=== PATIENT | male | born 1950 | race Caucasian/White ===

== ENCOUNTER 2018-11-20 16:01 | Inpatient (IN) ==
[2018-11-20] MEDS ORDERED: Clindamycin 600 MG/50 ML 600 MG/50 ML IV.SOLN IVPB ONE (19:42)
[2018-11-20 19:48] LABS: Basophils % 0.2 %; Eosinophils % 0.1 %; Hematocrit 41.4 % (37.5-50.1); Hemoglobin 14.3 g/dL (12.9-16.9); Immature Granulocytes % 0.7 % (0-4); Lymphocytes # 0.3 K/mcL (0.6-4.6); Mean Corpuscular HGB Conc 34.5 g/dL (31.6-35.5); Mean Corpuscular Hemoglobin 31.4 pg (28.0-33.3); Mean Corpuscular Volume 90.8 fL (83.0-100.0); Mean Platelet Volume 9.4 fL (9.4-12.4); Monocytes # 0.7 K/mcL (0.0-1.3); Monocytes % 4.2 %; Neutrophils # 15.6 K/mcL (1.6-8.9); Platelet Count 192 K/mcL (140-400); Red Blood Count 4.56 M/mcL (4.19-5.50); Red Cell Distribution Width 13.2 % (11.5-14.5); Segmented Neutrophils % 92.8 %; White Blood Count 16.8 K/mcL (4.3-11.1)
[2018-11-20 19:53] LABS: Bilirubin,Urine Small (Negative); Blood,Urine Negative (Negative); Clarity,Urine Clear (Clear); Color,Urine Yellow (Yellow); Glucose,Urine (UA) Normal (Normal); Ketones,Urine Trace mg/dL (Negative); Leukocyte Esterase,Urine Negative (Negative); Nitrite,Urine Negative (Negative); PH,Urine 6.5 pH Units (5.0-8.0); Protein,Urine 30 mg/dL (Neg-Trace); Urobilinogen,Urine Normal (Normal)
[2018-11-20 19:56] LABS: Bacteria,Urine None Seen per hpf (None-Few); Hyaline Casts,Urine None Seen per lpf (None-Few); Squamous Epithelial Cell,Urine Few per lpf (None-Few); WBC,Urine 0-3 per hpf (0-3)
[2018-11-20 19:56] LABS: INR 1.1; Prothrombin Time 11.9 Seconds (9.4-12.1)
[2018-11-20 19:59] LABS: Activated Partial Thrombo Time 29.3 Seconds (26.0-36.0)
[2018-11-20 20:22] LABS: Alanine Aminotransferase 19 Units/L (7-52); Albumin 3.8 g/dL (3.5-5.7); Albumin/Globulin Ratio 1.5 (1.1-2.2); Alkaline Phosphatase 91 Units/L (34-104); Aspartate Amino Transferase 26 Units/L (13-39); BUN/Creatinine Ratio 15 (6-26); Bilirubin,Direct 0.2 mg/dL (0.0-0.2); Bilirubin,Indirect 0.7 mg/dL (0.0-1.2); Bilirubin,Total 0.9 mg/dL (0.3-1.0); Blood Urea Nitrogen 21 mg/dL (8-23); Calcium 8.8 mg/dL (8.6-10.3); Carbon Dioxide 24 mEq/L (23-29); Chloride 105 mEq/L (98-107); Globulin 2.6 g/dL (2.4-3.5); Glucose 89 mg/dL (70-105); Magnesium 1.6 mg/dL (1.6-2.6); Osmolality,Calculated 288 (280-300); Phosphorous < 1.0 mg/dL (2.7-4.5); Potassium 3.7 mEq/L (3.5-5.1); Sodium 138 mEq/L (136-145); Total Protein 6.4 g/dL (6.4-8.9); Troponin I < 0.03 ng/mL (< 0.04); eGFR For African Americans > 60 (> 60); eGFR For Non-African Americans 51 (> 60)
--- NOTE | 2018-11-20 21:13 | Emergency Department Note ---
Disposition Clinical Impression: Cellulitis of right lower extremity Disposition: Admitted As Inpatient Condition: Good Referrals: Jean Buitrago MD [Primary Care Provider] - Forms: ED Satisfaction Letter Time of Disposition: 22:11 General Adult HPI - General Chief complaint: ED Extremity Problem,Nontraumatic Stated complaint: leg pain bilat Time Seen by Provider: 11/20/18 18:54 Source: patient Limitations: no limitations - History of Present Illness HPI Narrative: Patient is a 68-year-old gentleman who presents to the emergency department with chief complaint of lower extremity pain and swelling. The patient states that the pain started today and noticed that he had a large red area developed on his right lower extremity. Patient states the area is painful and it is raised and erythematous. Patient reports that he has not had trauma to the area. Patient denies history of diabetes denies any trauma to the affected area states that he does wear compression stockings on his lower extremities for peripheral edema. The patient reports that he has a low-grade fever today as well Pain Scale: 8 - Related Data Home Medications Medication Instructions Recorded Confirmed Furosemide [Lasix] 40 mg PO DAILY PRN #0 09/05/15 07/05/18 Levothyroxine [Synthroid] 112 mcg PO 0630 #0 09/05/15 07/05/18 Cholecalciferol (Vitamin D3) 5,000 unit PO DAILY 04/25/18 07/05/18 [Dialyvite Vitamin D] Diclofenac Sodium [Voltaren] 100 gm TP DAILY 07/05/18 07/05/18 Silver Sulfadiazine Cream 1 appl TP ONCE 07/05/18 07/05/18 [Silvadene] Terbinafine HCl [Lamisil] 250 mg PO DAILY 07/05/18 07/05/18 Allergies Allergy/AdvReac Type Severity Reaction Status Date / Time No Known Allergies Allergy Verified 11/20/18 16:10 All systems ED: reviewed and negative except as stated. Past Medical History - Past Medical History Attestation: Yes The following information was validated with the patient. Medical history: Reports: arthritis, renal disease, thyroid disease Surgical history: Reports: appendectomy, orthopedic, other, tonsillectomy Psychiatric history: Reports: no psych history - Social History Smoking Status: Never smoker Smokeless Tobacco Status: No Alcohol use: Reports: none Drug use: Reports: none Physical Exam General: Conversant and pleasant interactive and nontoxic. Head: Normocephalic/atraumatic Eyes:PERRLA, EOMI, no conjunctivitis Nares: Without d/c. Ears: No erythema or d/c noted. Oralpharnyx: P&MMM noted, Neck: Supple, no JVD or [employer] noted. Cardovascular: regular rate and rhythm without murmur, brisk capillary refill, no peripheral edema. Lungs: Clear to ascultation bilaterally, non-labored Abd: Soft nontender, Non Distended, no guarding, no rebound. : Defered Extremities: moves all extremities equally Neuro: AOx3, no obvious gross neuro deficit Psych: Normal Affect Derm: No rash noted - General Limitations: no limitations General appearance: alert Course Course Narrative: The patient's venous duplex is no evidence of DVT and lower extremity with the patient's white blood cell count being elevated and the area of cellulitis. Patient most likely benefit from IV antibiotics at this time the patient is currently not showing signs of severe sepsis he does have a mildly elevated lactic acid at 2.0 and white count of 16,000. Vital Signs Temperature 100.0 F H 11/20/18 16:10 Pulse Rate 101 11/20/18 16:10 Respiratory Rate 20 11/20/18 16:10 Blood Pressure 130/69 11/20/18 16:10 O2 Sat by Pulse Oximetry 96 11/20/18 16:10 Temperature 100.0 F H 11/20/18 18:27 Pulse Rate 92 11/20/18 21:00 Respiratory Rate 14 11/20/18 21:00 Blood Pressure 127/109 11/20/18 21:00 O2 Sat by Pulse Oximetry 98 11/20/18 21:01 Oxygen Delivery Oxygen Delivery Room Air Medical Decision Making - Lab Data Result diagrams: 11/20/18 19:32 11/20/18 19:32 Lab Results 11/20/18 11/20/18 11/20/18 Range/Units 19:32 19:32 19:32 WBC 16.8 H (4.3-11.1) K/mcL RBC 4.56 (4.19-5.50) M/mcL Hgb 14.3 (12.9-16.9) g/dL Hct 41.4 (37.5-50.1) % MCV 90.8 (83.0-100.0) fL MCH 31.4 (28.0-33.3) pg MCHC 34.5 (31.6-35.5) g/dL RDW 13.2 (11.5-14.5) % Plt Count 192 (140-400) K/mcL MPV 9.4 (9.4-12.4) fL Immature Gran % 0.7 (0-4) % Seg Neutrophils % 92.8 % Lymphocytes % 2.0 % Monocytes % 4.2 % Eosinophils % 0.1 % Basophils % 0.2 % Neutrophils # 15.6 H (1.6-8.9) K/mcL Lymphocytes # 0.3 L (0.6-4.6) K/mcL Monocytes # 0.7 (0.0-1.3) K/mcL Eosinophils # 0.0 (0.0-0.6) K/mcL Basophils # 0.0 (0.0-0.2) K/mcL PT 11.9 (9.4-12.1) Seconds INR 1.1 APTT 29.3 (26.0-36.0) Seconds Sodium 138 (136-145) mEq/L Potassium 3.7 (3.5-5.1) mEq/L Chloride 105 (98-107) mEq/L Carbon Dioxide 24 (23-29) mEq/L BUN 21 (8-23) mg/dL Creatinine 1.39 H (0.70-1.30) mg/dL Est GFR ( Amer) > 60 (> 60) Est GFR (Non-Af Amer) 51 L (> 60) BUN/Creatinine Ratio 15 (6-26) Glucose 89 (70-105) mg/dL Calculated Osmolality 288 (280-300) Lactic Acid (0.5-2.2) mmol/L Calcium 8.8 (8.6-10.3) mg/dL Phosphorus < 1.0 L* (2.7-4.5) mg/dL Magnesium 1.6 (1.6-2.6) mg/dL Total Bilirubin 0.9 (0.3-1.0) mg/dL Direct Bilirubin 0.2 (0.0-0.2) mg/dL Indirect Bilirubin 0.7 (0.0-1.2) mg/dL AST 26 (13-39) Units/L ALT 19 (7-52) Units/L Alkaline Phosphatase 91 (34-104) Units/L Troponin I < 0.03 (< 0.04) ng/mL B-Natriuretic Peptide (Less than 100) pg/mL Serum Total Protein 6.4 (6.4-8.9) g/dL Albumin 3.8 (3.5-5.7) g/dL Globulin 2.6 (2.4-3.5) g/dL Albumin/Globulin Ratio 1.5 (1.1-2.2) Urine Color (Yellow) Urine Clarity (Clear) Urine pH (5.0-8.0) pH Units Ur Specific [place] (1.010-1.025) Urine Protein (Neg-Trace) mg/dL Urine Glucose (UA) (Normal) mg/dL Urine Ketones (Negative) mg/dL Urine Blood (Negative) Urine Nitrite (Negative) Urine Bilirubin (Negative) Urine Urobilinogen (Normal) mg/dL Ur Leukocyte Esterase (Negative) Urine Microscopic RBC (0-3) per hpf Urine Microscopic WBC (0-3) per hpf Ur Squamous Epith Cells (None-Few) per lpf Urine Bacteria (None-Few) per hpf Hyaline Casts (None-Few) per lpf Ur Culture Indicated? (NO) 11/20/18 11/20/18 11/20/18 Range/Units 19:32 19:32 19:40 WBC (4.3-11.1) K/mcL RBC (4.19-5.50) M/mcL Hgb (12.9-16.9) g/dL Hct (37.5-50.1) % MCV (83.0-100.0) fL MCH (28.0-33.3) pg MCHC (31.6-35.5) g/dL RDW (11.5-14.5) % Plt Count (140-400) K/mcL MPV (9.4-12.4) fL Immature Gran % (0-4) % Seg Neutrophils % % Lymphocytes % % Monocytes % % Eosinophils % % Basophils % % Neutrophils # (1.6-8.9) K/mcL Lymphocytes # (0.6-4.6) K/mcL Monocytes # (0.0-1.3) K/mcL Eosinophils # (0.0-0.6) K/mcL Basophils # (0.0-0.2) K/mcL PT (9.4-12.1) Seconds INR APTT (26.0-36.0) Seconds Sodium (136-145) mEq/L Potassium (3.5-5.1) mEq/L Chloride (98-107) mEq/L Carbon Dioxide (23-29) mEq/L BUN (8-23) mg/dL Creatinine (0.70-1.30) mg/dL Est GFR ( Amer) (> 60) Est GFR (Non-Af Amer) (> 60) BUN/Creatinine Ratio (6-26) Glucose (70-105) mg/dL Calculated Osmolality (280-300) Lactic Acid 2.0 (0.5-2.2) mmol/L Calcium (8.6-10.3) mg/dL Phosphorus (2.7-4.5) mg/dL Magnesium (1.6-2.6) mg/dL Total Bilirubin (0.3-1.0) mg/dL Direct Bilirubin (0.0-0.2) mg/dL Indirect Bilirubin (0.0-1.2) mg/dL AST (13-39) Units/L ALT (7-52) Units/L Alkaline Phosphatase (34-104) Units/L Troponin I (< 0.04) ng/mL B-Natriuretic Peptide 121 H (Less than 100) pg/mL Serum Total Protein (6.4-8.9) g/dL Albumin (3.5-5.7) g/dL Globulin (2.4-3.5) g/dL Albumin/Globulin Ratio (1.1-2.2) Urine Color Yellow (Yellow) Urine Clarity Clear (Clear) Urine pH 6.5 (5.0-8.0) pH Units Ur Specific [place] 1.020 (1.010-1.025) Urine Protein 30 H (Neg-Trace) mg/dL Urine Glucose (UA) Normal (Normal) mg/dL Urine Ketones Trace H (Negative) mg/dL Urine Blood Negative (Negative) Urine Nitrite Negative (Negative) Urine Bilirubin Small H (Negative) Urine Urobilinogen Normal (Normal) mg/dL Ur Leukocyte Esterase Negative (Negative) Urine Microscopic RBC 3-5 H (0-3) per hpf Urine Microscopic WBC 0-3 (0-3) per hpf Ur Squamous Epith Cells Few (None-Few) per lpf Urine Bacteria None Seen (None-Few) per hpf Hyaline Casts None Seen (None-Few) per lpf Ur Culture Indicated? NO (NO) 11/20/18 Range/Units 20:44 WBC (4.3-11.1) K/mcL RBC (4.19-5.50) M/mcL Hgb (12.9-16.9) g/dL Hct (37.5-50.1) % MCV (83.0-100.0) fL MCH (28.0-33.3) pg MCHC (31.6-35.5) g/dL RDW (11.5-14.5) % Plt Count (140-400) K/mcL MPV (9.4-12.4) fL Immature Gran % (0-4) % Seg Neutrophils % % Lymphocytes % % Monocytes % % Eosinophils % % Basophils % % Neutrophils # (1.6-8.9) K/mcL Lymphocytes # (0.6-4.6) K/mcL Monocytes # (0.0-1.3) K/mcL Eosinophils # (0.0-0.6) K/mcL Basophils # (0.0-0.2) K/mcL PT (9.4-12.1) Seconds INR APTT (26.0-36.0) Seconds Sodium (136-145) mEq/L Potassium (3.5-5.1) mEq/L Chloride (98-107) mEq/L Carbon Dioxide (23-29) mEq/L BUN (8-23) mg/dL Creatinine (0.70-1.30) mg/dL Est GFR ( Amer) (> 60) Est GFR (Non-Af Amer) (> 60) BUN/Creatinine Ratio (6-26) Glucose (70-105) mg/dL Calculated Osmolality (280-300) Lactic Acid (0.5-2.2) mmol/L Calcium (8.6-10.3) mg/dL Phosphorus < 1.0 L* (2.7-4.5) mg/dL Magnesium (1.6-2.6) mg/dL Total Bilirubin (0.3-1.0) mg/dL Direct Bilirubin (0.0-0.2) mg/dL Indirect Bilirubin (0.0-1.2) mg/dL AST (13-39) Units/L ALT (7-52) Units/L Alkaline Phosphatase (34-104) Units/L Troponin I (< 0.04) ng/mL B-Natriuretic Peptide (Less than 100) pg/mL Serum Total Protein (6.4-8.9) g/dL Albumin (3.5-5.7) g/dL Globulin (2.4-3.5) g/dL Albumin/Globulin Ratio (1.1-2.2) Urine Color (Yellow) Urine Clarity (Clear) Urine pH (5.0-8.0) pH Units Ur Specific [place] (1.010-1.025) Urine Protein (Neg-Trace) mg/dL Urine Glucose (UA) (Normal) mg/dL Urine Ketones (Negative) mg/dL Urine Blood (Negative) Urine Nitrite (Negative) Urine Bilirubin (Negative) Urine Urobilinogen (Normal) mg/dL Ur Leukocyte Esterase (Negative) Urine Microscopic RBC (0-3) per hpf Urine Microscopic WBC (0-3) per hpf Ur Squamous Epith Cells (None-Few) per lpf Urine Bacteria (None-Few) per hpf Hyaline Casts (None-Few) per lpf Ur Culture Indicated? (NO)
[2018-11-20] MEDS ORDERED: Naloxone 0.4 MG/ML INJ IVP PRN (23:17)
--- NOTE | 2018-11-20 23:24 | Internal Med History&Physical ---
Date of Encounter: 11/20/18 Time of Encounter: 23:21 Internal Medicine - H&P: HPI Chief complaint: Right leg swelling Admitted From: Emergency Dept Plans for Post Hospital Care: Home History of present illness: Mr. Kulkarni is a 68 year old male with history of hypothyroidism who presents with right leg swelling. He states his symptoms began today. He states all of sudden he developed pain and swelling with erythema in the right lower extremity. He states this feels similar to his previous episodes of cellulitis. He denies any trauma, injury, skin break to the area. He reports subjective fevers and chills. Denies any drainage. He states walking on it makes the pain worse. He states nothing makes the pain better. Discussed with patient who wishes to be full code. Past Med Surg Social Fam HX - Past Medical History Medical history: arthritis, renal disease, thyroid disease Additional medical history: bilateral calluses on feet,bilateral edema of lower extremity,hypothyroid,obesity,chronic kidney disease stage III,nocturia,erectile dysfuntion Psychiatric history: no psych history - Past Surgical History Surgical History: appendectomy, orthopedic, other, tonsillectomy Additional surgical history: left knee arthroscopy,adenoidectomy,right knee scope,right foot surgery - Social History Smoking Status: Never smoker Smokeless Tobacco Status: No Alcohol use: none Drug use: none - Family History Mother Adopted: No Living Status: Hx Family Cardiac Disorders: Yes Hx Family Respiratory Disorders: Yes Hx Family Cancer: Yes Hx Family GI Disorders: No Hx Family Endocrine Disorder: No Hx Family Neuromuscular Disorders: No Hx Family Neurologic Disorders: No Hx Family HEENT Disorders: No Hx Family Autoimmune Disorders: No Father Adopted: No Living Status: Hx Family Cardiac Disorders: Yes Hx Family Respiratory Disorders: Yes Hx Family Cancer: Yes Hx Family GI Disorders: No Hx Family Endocrine Disorder: No Hx Family Neuromuscular Disorders: No Hx Family Neurologic Disorders: No Hx Family HEENT Disorders: No Hx Family Autoimmune Disorders: No Internal Medicine - H&P: Meds Furosemide [Lasix] 40 mg PO DAILY PRN #0 09/05/15 [History] Levothyroxine [Synthroid] 112 mcg PO 0630 #0 09/05/15 [History] Silver Sulfadiazine Cream [Silvadene] 1 appl TP ONCE 07/05/18 [History] "Prostate Pill" 11/20/18 [History] Allergy/AdvReac Type Severity Reaction Status Date / Time No Known Allergies Allergy Verified 11/20/18 16:10 All Systems PM: A 10-system review of systems was performed and is negative for pertinent findings except as documented above in the HPI. Review of systems: 10 point review of systems was obtained and negative other than stated below: - Constitutional Constitutional: chills, fever(s) - Cardiovascular Cardiovascular ROS IM: no chest pain - Respiratory Respiratory: no dyspnea - Integumentary Integumentary IM: erythema, new lesions - Constitutional Vitals: Temp Pulse Resp BP Pulse Ox 100.0 F H 87 20 165/118 99 11/20/18 18:27 11/20/18 22:35 11/20/18 22:35 11/20/18 22:35 11/20/18 22:35 General appearance: Present: A&O X 3, pleasant, no acute distress Exam: . - Head Head exam: Present: atraumatic, normal inspection, normocephalic - Eye Eye exam: Present: EOMI, PERRL - ENT ENT exam: Present: mucous membranes moist, normal oropharynx - Neck Neck exam general surgery: Present: full ROM. Absent: tenderness - Respiratory Respiratory exam: Present: CTAB. Absent: rales, rhonchi, wheezes - Cardiovascular Cardiovascular exam: Present: RRR. Absent: gallop, rubs, systolic murmur - GI/Abdominal GI/Abdominal exam: Present: normal bowel sounds, soft. Absent: distended, tenderness - Extremities Exam Extremities exam: Present: pedal edema (Trace bilateral), tenderness, warm - Neurological Exam Neurological exam: Present: alert, CN II-XII intact, oriented X3, no focal deficits - Psychiatric Psychiatric exam: Present: normal affect, normal mood - Skin Skin exam: Present: dry, intact, warm Additional comments: Patient has an area erythema on the right lower extremity between the knee in the ankle. Area is indurated with no obvious fluctuance. No break in the skin is noted. No areas of drainage noted. This area is tender to palpation. Internal Med - H&P Results - Labs CBC & Chem 7: 11/20/18 19:32 11/20/18 19:32 Labs: Short CBC 11/20/18 Range/Units 19:32 WBC 16.8 H (4.3-11.1) K/mcL Hgb 14.3 (12.9-16.9) g/dL Hct 41.4 (37.5-50.1) % Plt Count 192 (140-400) K/mcL Neutrophils # 15.6 H (1.6-8.9) K/mcL BMP 11/20/18 19:32 Sodium 138 Potassium 3.7 Chloride 105 Carbon Dioxide 24 BUN 21 Creatinine 1.39 H Glucose 89 Calcium 8.8 Cardiac Enzymes 11/20/18 Range/Units 19:32 Troponin I < 0.03 (< 0.04) ng/mL Liver Function 11/20/18 Range/Units 19:32 Total Bilirubin 0.9 (0.3-1.0) mg/dL Direct Bilirubin 0.2 (0.0-0.2) mg/dL AST 26 (13-39) Units/L ALT 19 (7-52) Units/L Alkaline Phosphatase 91 (34-104) Units/L Albumin 3.8 (3.5-5.7) g/dL Urine 11/20/18 Range/Units 19:40 Urine Color Yellow (Yellow) Urine Clarity Clear (Clear) Urine pH 6.5 (5.0-8.0) pH Units Ur Specific [place] 1.020 (1.010-1.025) Urine Protein 30 H (Neg-Trace) mg/dL Urine Glucose (UA) Normal (Normal) mg/dL - Impressions ITS Impressions Chest X-Ray 11/20/18 19:12 IMPRESSION: No acute abnormality detected. D/ / Mert Wesley MD / Mert Wesley MD Interpreting Provider: Mert Wesley MD - Assessment and Plan (1) Sepsis Current Visit: Yes Status: Acute Assessment and plan: Patient presented with leukocytosis and tachycardia with presumed source felt to be cellulitis. Blood cultures have been drawn. Initial lactic acid was 2.0, recheck down to 1.8. Fluids were not given due to patient's history of peripheral edema. Antibiotics initially initiated with clindamycin, has been switched to vancomycin. Qualifiers: Sepsis type: sepsis due to unspecified organism Qualified Code(s): A41.9 - Sepsis, unspecified organism (2) Cellulitis Current Visit: Yes Status: Acute Assessment and plan: Patient has erythema and induration of the right lower extremity. We will asked nursing to outline it. Initially with clindamycin. Upon review of old microbiologic results patient is admitted MRSA in the past been resistant to clindamycin. Therefore we will start vancomycin. Qualifiers: Site of cellulitis: extremity Site of cellulitis of extremity: lower extremity Laterality: right Qualified Code(s): L03.115 - Cellulitis of right lower limb (3) Chronic kidney disease, stage III (moderate) Current Visit: Yes Status: Acute Assessment and plan: Creatinine 1.39 on presentation, GFR 51, baseline GFR appears around 55. Closely monitor kidney function as the patient is receiving vancomycin. (4) Hypothyroidism Current Visit: No Status: Chronic Assessment and plan: Continue levothyroxine. Qualifiers: Hypothyroidism type: unspecified Qualified Code(s): E03.9 - Hypothyroidism, unspecified (5) DVT prophylaxis Current Visit: Yes Status: Acute Assessment and plan: Heparin 5000 units subcutaneous twice a day - Time Spent With Patient Total time spent is greater than 50% in coordination of care (as documented) at patient's floor/unit and/or counseling patient:
[2018-11-20] MEDS ORDERED: Vancomycin (wt based) 1,000 MG VIAL IVPB SCH (23:45)
[2018-11-20] MEDS: Melatonin 3 MG TABLET PO PRN (23:55)
[2018-11-21] MEDS: *HR* Heparin 5,000 UNIT/ML VIAL SQ SCH ×2 (05:28→17:39)
[2018-11-21 06:23] LABS: Basophils # 0.1 K/mcL (0.0-0.2); Basophils % 0.2 %; Hematocrit 40.1 % (37.5-50.1); Hemoglobin 13.5 g/dL (12.9-16.9); Immature Granulocytes % 1.4 % (0-4); Lymphocytes # 0.6 K/mcL (0.6-4.6); Lymphocytes % 2.4 %; Mean Corpuscular HGB Conc 33.7 g/dL (31.6-35.5); Mean Corpuscular Hemoglobin 31.2 pg (28.0-33.3); Mean Corpuscular Volume 92.6 fL (83.0-100.0); Mean Platelet Volume 9.5 fL (9.4-12.4); Monocytes # 0.6 K/mcL (0.0-1.3); Monocytes % 2.3 %; Neutrophils # 22.6 K/mcL (1.6-8.9); Platelet Count 185 K/mcL (140-400); Red Blood Count 4.33 M/mcL (4.19-5.50); Red Cell Distribution Width 13.5 % (11.5-14.5); Segmented Neutrophils % 93.7 %; White Blood Count 24.1 K/mcL (4.3-11.1)
[2018-11-21 06:47] LABS: Calcium 8.5 mg/dL (8.6-10.3); Magnesium 1.7 mg/dL (1.6-2.6); Phosphorous 2.3 mg/dL (2.7-4.5); Potassium 4.3 mEq/L (3.5-5.1)
[2018-11-21 07:17] LABS: Platelet Estimate Normal (Normal)
[2018-11-21 08:02] LABS: Acinetobacter baumannii by PCR Not Detected (Not Detect); Enterobacter cloacae Cmplx PCR Not Detected (Not Detect); Enterobacteriaceae by PCR Not Detected (Not Detect); Enterococcus by PCR Not Detected (Not Detect); Escherichia coli by PCR Not Detected (Not Detect); Klebsiella oxytoca by PCR Not Detected (Not Detect); Klebsiella pneumoniae by PCR Not Detected (Not Detect); Proteus by PCR Not Detected (Not Detect); Pseudomonas aeruginosa by PCR Not Detected (Not Detect); Serratia marcescens by PCR Not Detected (Not Detect); Staphylococcus aureus by PCR Not Detected (Not Detect); Staphylococcus by PCR Not Detected (Not Detect); Streptococcus agalactiae(B)PCR Not Detected (Not Detect); Streptococcus pneumoniae PCR Not Detected (Not Detect); Streptococcus pyogenes (A) PCR Not Detected (Not Detect)
[2018-11-21 08:03] LABS: Candida albicans by PCR Not Detected (Not Detect); Candida glabrata by PCR Not Detected (Not Detect); Candida krusei by PCR Not Detected (Not Detect); Candida parapsilosis by PCR Not Detected (Not Detect); Candida tropicalis by PCR Not Detected (Not Detect); Streptococcus by PCR DETECTED (Not Detect)
[2018-11-21] MEDS ORDERED: Ringers Solution, Lactated 1,000 ML IVC SCH (08:45)
[2018-11-21] MEDS ORDERED: cefTRIAXone 1,000 MG in Water for inj. (sterile) 20 ML 10 ML IVP SCH (09:00)
[2018-11-21] MEDS: Acetaminophen 325 MG TABLET PO PRN ×2 (10:10→19:58)
--- NOTE | 2018-11-21 12:00 | Internal Med Progress Note ---
Hospitalist Progress Note - Encounter Date of Encounter: 11/21/18 Time of Encounter: 11:56 - Subjective Interval History: I have seen and evaluated the patient at bedside. patient reports pain on the right lower extr. reports subjective fever, and generalized weakness. denies nausea or vomiting. denies shortness of breath. - Exam Vitals: Temp Pulse Resp BP Pulse Ox 98.7 F 68 16 99/60 96 11/21/18 11:17 11/21/18 11:17 11/21/18 11:17 11/21/18 11:17 11/21/18 11:17 Exam: Vitals: Reviewed General: Morbidly obese, alert and oriented x4. In mild distress due to right lower extr pain Cardiovascular: RRR, normal S1 & S2, no rubs, murmurs or gallops. Lungs: CTA b/l, no wheezes or crackles. Abdomen: Obese, soft, non-tender, no rigidity. Extremities: erythema and edema of the right lower extr. Neurological: No focal neurological abnormalities Rest of the physical exam is non contributory - Assessment and Plan (1) Cellulitis Current Visit: Yes Status: Acute Assessment and Plan: erythema, edema and tenderness of the right lower extr. Plan patient on broad spectrum antibiotics with vancomycin for MRSA coverage per pharmacy dosing and Piperacillin/Tazobactam 3.375mg/IV Q8HR for pseudomonas coverage [place] 5-325mg 1tab Q4HR PRN for pain control extremity elevated >[address] of the extremity to r/o collection. ESR. CRP ordered (2) Hypothyroidism Current Visit: No Status: Chronic Assessment and Plan: Patient is a levofloxacin 112 mcg/PO daily (3) Sepsis Current Visit: Yes Status: Acute Assessment and Plan: patient with hypotension, febrile, leukocytosis in the setting of cellulitis. On broad spectrum IV antibiotics IV hydration with LR @100ml/hr (4) Chronic kidney disease, stage III (moderate) Current Visit: Yes Status: Acute Assessment and Plan: slightly worsening kidney function. continue IV fluids and nephro-protective strategies. will re-assess kidney function tomorrow morning (5) Hypophosphatemia Current Visit: Yes Status: Acute (6) Bacteremia Current Visit: Yes Status: Acute Assessment and Plan: patient with a Hx of MRSA. blood culture: gram positive cocci. PCR identified strep species MRSA screen continue vancomycin per pharmacy protocol TTE ordered ID consulted, recommendations appreciated. (7) Morbid obesity with body mass index of 45.0-49.9 in adult Current Visit: No Status: Acute DVT Prophylaxis: On heparin subcutaneous. - Summary of Assessment and Plan Summary of Assessment and Plan: Patient to remain in the hospital due to sepsis, secondary to cellulitis. On IV antibiotics. - Time Spent with Patient Total time spent is greater than 50% in coordination of care (as documented) at patient's floor/unit and/or counseling patient: Greater than 35 minutes (40) Plan of Care Discussed with: patient (and the nurse.) Internal Medicine: Result - Labs CBC & Chem 7: 11/21/18 06:10 11/21/18 06:10 Labs: Short CBC 11/20/18 11/21/18 Range/Units 19:32 06:10 WBC 16.8 H 24.1 H (4.3-11.1) K/mcL Hgb 14.3 13.5 (12.9-16.9) g/dL Hct 41.4 40.1 (37.5-50.1) % Plt Count 192 185 (140-400) K/mcL Neutrophils # 15.6 H 22.6 H (1.6-8.9) K/mcL BMP 11/20/18 11/21/18 19:32 06:10 Sodium 138 134 L Potassium 3.7 4.3 Chloride 105 103 Carbon Dioxide 24 22 L BUN 21 26 H Creatinine 1.39 H 1.56 H Glucose 89 91 Calcium 8.8 8.5 L Cardiac Enzymes 11/20/18 Range/Units 19:32 Troponin I < 0.03 (< 0.04) ng/mL Liver Function 11/20/18 Range/Units 19:32 Total Bilirubin 0.9 (0.3-1.0) mg/dL Direct Bilirubin 0.2 (0.0-0.2) mg/dL AST 26 (13-39) Units/L ALT 19 (7-52) Units/L Alkaline Phosphatase 91 (34-104) Units/L Albumin 3.8 (3.5-5.7) g/dL Urine 11/20/18 Range/Units 19:40 Urine Color Yellow (Yellow) Urine Clarity Clear (Clear) Urine pH 6.5 (5.0-8.0) pH Units Ur Specific [place] 1.020 (1.010-1.025) Urine Protein 30 H (Neg-Trace) mg/dL Urine Glucose (UA) Normal (Normal) mg/dL - ABG Interpretation ABG results: PT/INR, D-dimer PT 11.9 Seconds (9.4-12.1) 11/20/18 19:32 - Impressions Impressions Chest X-Ray 11/20/18 19:12 IMPRESSION: No acute abnormality detected. D/ / Mert Wesley MD / Mert Wesley MD Interpreting Provider: Mert Wesley MD Consult Discharge Plan - Plan Referrals: Jean Buitrago MD [Primary Care Provider] - (1) Cellulitis Qualifiers: Site of cellulitis: extremity Site of cellulitis of extremity: lower extremity Laterality: right Qualified Code(s): L03.115 - Cellulitis of right lower limb (2) Hypothyroidism Qualifiers: Hypothyroidism type: unspecified Qualified Code(s): E03.9 - Hypothyroidism, unspecified (3) Sepsis Qualifiers: Sepsis type: sepsis due to unspecified organism Qualified Code(s): A41.9 - Sepsis, unspecified organism
--- NOTE | 2018-11-21 12:52 | Infectious Disease Consult ---
Infectious Disease-Consult - Encounter Date/Time Date of Encounter: 11/21/18 Time of Encounter: 13:30 - Data of Consult Patient: new to practice Reason for consult: Gram-positive cocci bacteremia Consult date: 11/21/18 Requesting Physician: Gurpreet Patricia, Primary Care Provider: Jean Buitrago MD - HPI HPI: Mr. Kulkarni is a 68-year-old gentleman who was admitted to the hospital on 11/20/18 for right leg swelling and cellulitis for approximately 2 days. Infectious disease was consulted today, 11/21/18, for Streptococcus bacteremia and sepsis. In short, Mr. Kulkarni is a 68-year-old man with history of renal disease who presented to the hospital on 11/20/18 with 2 day history of right lower extremity swelling and erythema as well as severe pain. In association with this he did admit to fever, chills and malaise. The patient does have history of cellulitis of the right lower extremity as well as a long-standing ulcer of the right lower extremity which has been healing. He says the pain started relatively quickly and has been worsening rapidly. There is no drainage to be noted. He says that he is not aware of any openings in the skin or injury to that area. Nothing seems to make this pain any better. Walking and weightbearing does make the pain worse. Upon presentation to the ED, the patient did have chest x-ray which was negative for intrathoracic finding. She had a WBC of 16.8, CRP of 123. He was nearly febrile with a temperature of 100.0, however he was tachycardic at 101 and tachypneic at respiratory rate of 20. Blood cultures were drawn at that time which would eventually result in positive cultures for gram-positive cocci with positivity a PCR for Streptococcus. Overnight the patient continued to have temperatures were elevated including Tmax of 100.2. This morning the patient had labs significant for WBC of 24.1, and elevation of serum creatinine of 1.56. The patient did have a CT of the lower extremity which demonstrated soft tissue edema but no consolidated fluid collection. Infectious disease was consulted for bacteremia and worsening cellulitis. - ROS Review of Systems: Constitutional: Admits to subjective fevers, chills, sweats Head/Neck: Denies DAVID, neck stiffness EENT: Denies vision changes/blurriness, rhinorrhea, congestion, sore throat CVS: Denies chest pain, palpitations, DAMON, orthopnea, edema, PND Pulm: Denies SOB, cough, sputum, hemoptysis, wheezing GI: Denies abdominal pain, nausea, vomiting, diarrhea, constipation, melena, hematemasis : Denies dysuria, increased frequency, urgency, hematuria Heme: Denies ease of bleeding or bruising MSK: Denies joint pain, limited ROM Skin: Admits to rash of the right lower extremity which developed 2 days ago Neuro: Denies DAVID, paresthesias, focal deficits, ataxia - Results CBC & Chem 7: 11/21/18 06:10 11/21/18 06:10 - Exam Vitals: Temp Pulse Resp BP Pulse Ox 98.7 F 68 16 99/60 96 11/21/18 11:17 11/21/18 11:17 11/21/18 11:17 11/21/18 11:17 11/21/18 11:17 Exam: Gen: Vitals noted. No acute distress. Eyes: anicteric sclerae, moist conjunctivae; no lid-lag; Pupils equal and reactive to light HENT: Atraumatic; oropharynx clear with moist mucous membranes and no mucosal ulcerations; normal hard and soft palate Neck: Trachea midline; supple, no thyromegaly or lymphadenopathy Cardiac: RRR, no murmur, +S1/S2 Pulmonary: CTA bilaterally, no wheezes, rales or rhonchi, equal chest expansion Abdomen: soft, nontender, no guarding. No masses or hepatosplenomegaly MSK: ROM intact, no joint swelling noted Extremities: Left lower extremity demonstrates no edema, clubbing, cyanosis. Right lower extremity as below. Skin: Well-demarcated cellulitis noted on the right lower extremity. Begins just below the knee and in just above the severe erythema and hyperemia. There is a healing ulcer noted on the lateral right lower extremity. There are no areas of opening or drainage. There is a blistered appearance between the fourth and fifth metatarsal of the right lower extremity. No decubitus ulcers noted. Neuro: moves all extremities, no focal deficits. Psych: Appropriate mood and behavior. A&Ox3 Furosemide [Lasix] 40 mg PO DAILY PRN #0 09/05/15 [History] Levothyroxine [Synthroid] 112 mcg PO 0630 #0 09/05/15 [History] Silver Sulfadiazine Cream [Silvadene] 1 appl TP ONCE 07/05/18 [History] "Prostate Pill" 11/20/18 [History] Allergy/AdvReac Type Severity Reaction Status Date / Time No Known Allergies Allergy Verified 11/20/18 16:10 - Assessment and Plan (1) Sepsis Current Visit: Yes Status: Acute Severe Sepsis due to Streptococcus bacteremia and cellulitis of the right lower extremity SIRS Criteria: WBC 24.1, HR 101, RR 20. Afebrile, however Tmax 100.2. Source: Cellulitis, Strep bacteremia. Presents with KIM Evidence of cellulitis on admission, severe erythema and hyperemia of the right lower extremity which is well demarcated On admission, WBC 16.8, increased to 24.1 overnight. Worsened KIM overnight. Lactic acid 2.0 CT RLE 11/27/18 shows diffuse subcutaneous edema with dystrophic calcification in the anterior soft tissues, compatible with cellulitis Patient does not be germain criteria for infective endocarditis ESR 14 CRP 123 Cultures 11/20/18 blood culture positive for GPC 1, PCR positive for strep 10/15/17 left foot wound culture MRSA positive, strep agalactiae positive, alcigenes faecalis postivie 09/03/17 left foot wound culture strep agalactiae positive, MSSA positive 10/12/16 right foot wound culture strep G positive Antibiotics Vancomycin day 1 Zosyn day 1 Received Rocephin in the ED Received clindamycin and ED Recommendations -Stop vancomycin and Zosyn -Start Rocephin 2 g IV daily -Repeat CBC in the morning, carefully monitor labs overnight -Repeat blood cultures in the morning -At this time, suspect Streptococcus as main infective agent. If the patient decompensates clinically or labs are worsened in the morning, consider broadening coverage. Clinically, he appears to be improving, and he feels as though he is improving. -Will continue to monitor Qualifiers: Sepsis type: Streptococcus, unspecified Qualified Code(s): A40.9 - Streptococcal sepsis, unspecified; A40 - Streptococcal sepsis SNOMED Code(s): 30495737 (2) Bacteremia Current Visit: Yes Status: Acute Streptococcus bacteremia Cultures from 11/20/18 are positive 1, specific strain or not clear at this point Patient does not meet Germain criteria at this time for endocarditis, has no stigmata of endocarditis on exam Additionally, patient has had orthopedic surgery, however has no hardware We will continue to treat the patient as above SNOMED Code(s): 3666582 (3) Cellulitis of right lower extremity Current Visit: Yes Status: Acute Cellulitis, likely secondary to strep species It is possible that the cellulitis is polymicrobial however uncertain at this time We will transition the patient to Rocephin as above Continue to monitor clinically and with labs Broaden coverage as needed SNOMED Code(s): 835972329 (4) Acute kidney injury superimposed on CKD Current Visit: Yes Status: Acute Acute kidney injury on CKD Stage 3 This is likely secondary to severe sepsis in the setting of gram-positive chet teremia Management per primary team SNOMED Code(s): 06323160 (5) Hypothyroidism Current Visit: No Status: Chronic Qualifiers: Hypothyroidism type: unspecified Qualified Code(s): E03.9 - Hypothyroidism, unspecified SNOMED Code(s): 32663891 Past Med Surg Social Fam HX - Past Medical History Medical history: arthritis, renal disease, thyroid disease Additional medical history: bilateral calluses on feet,bilateral edema of lower extremity,hypothyroid,obesity,chronic kidney disease stage III,nocturia,erectile dysfuntion Psychiatric history: no psych history - Past Surgical History Surgical History: appendectomy, orthopedic, other, tonsillectomy Additional surgical history: left knee arthroscopy,adenoidectomy,right knee scope,right foot surgery - Social History Smoking Status: Never smoker Smokeless Tobacco Status: No Alcohol use: none Drug use: none - Family History Mother Adopted: No Living Status: Hx Family Cardiac Disorders: Yes Hx Family Respiratory Disorders: Yes Hx Family Cancer: Yes Hx Family GI Disorders: No Hx Family Endocrine Disorder: No Hx Family Neuromuscular Disorders: No Hx Family Neurologic Disorders: No Hx Family HEENT Disorders: No Hx Family Autoimmune Disorders: No Father Adopted: No Living Status: Hx Family Cardiac Disorders: Yes Hx Family Respiratory Disorders: Yes Hx Family Cancer: Yes Hx Family GI Disorders: No Hx Family Endocrine Disorder: No Hx Family Neuromuscular Disorders: No Hx Family Neurologic Disorders: No Hx Family HEENT Disorders: No Hx Family Autoimmune Disorders: No Consult Discharge Plan - Plan Referrals: Jean Buitrago MD [Primary Care Provider] - - Attending Attestation I examined this patient and my medical decision-making was reviewed with the Resident Physician. I agree with the documented findings, disposition and treatment plan as described except to the extent set forth below. Patient appears comfortable sitting at bedside. Agree with above history of present illness review of systems physical exam findings. Assessment and plan: Sepsis secondary to bacteremia Bacteremia with streptococcal species. ID pending likely source cellulitis Cellulitis right lower extremity Acute on chronic kidney injury Hypothyroidism Morbidity obesity BMI 50 Recommendations Stop the vancomycin Start Rocephin 2 g IV every 24 hours If patient does worse clinically we might have to add either daptomycin on Zyvox but hopefully we do not need to Monitor labs and for drug toxicity
[2018-11-21] MEDS: cefTRIAXone 2,000 MG in Water for inj. (sterile) 20 ML 20 ML IVP SCH (14:57)
[2018-11-21] MEDS: *HR* HYDROcodone/Acet 5/325 mg TABLET PO PRN (14:59)
[2018-11-21] MEDS: Ringers Solution, Lactated 1,000 ML IVC SCH ×2 (15:09→22:00)
[2018-11-21] MEDS ORDERED: Piperacillin/Tazobactam 3.375 GM in 0.9 % Sodium Chloride Mini Bag 100 ML IVPB SCH (16:00)
[2018-11-21] MEDS ORDERED: Perflutren Lipid Microsphere 1.3 ML in 0.9 % Sodium Chloride 8.7 ML IVP ONE (18:42)
--- NOTE | 2018-11-21 19:47 | Electrocardiograph Report ---
[place] [id number] Test Date: 2018-11-20 Pat Name: Ramón Kulkarni Department: EXAM1 Room: 2A23 Gender: M Mortgage Manager: : [id number] Requested By: Tommy Cavazos Order Number: [id number] Reading MD: Carmen Frye Measurements Intervals [place] Rate: 89 P: 19 KS: 151 QRS: -9 QRSD: 108 T: 37 QT: 336 QTc: 409 Interpretive Statements Sinus rhythm Abnormal R-wave progression, early transition Electronically Signed On 11-21-2018 19:45:39 EDT by Carmen Frye
[2018-11-22] MEDS: *HR* HYDROcodone/Acet 5/325 mg TABLET PO PRN ×2 (00:08→16:54)
[2018-11-22] MEDS: *HR* Heparin 5,000 UNIT/ML VIAL SQ SCH ×2 (05:10→16:55)
[2018-11-22 06:43] LABS: Basophils % 0.2 %; Eosinophils # 0.1 K/mcL (0.0-0.6); Eosinophils % 0.4 %; Hematocrit 38.4 % (37.5-50.1); Hemoglobin 12.8 g/dL (12.9-16.9); Immature Granulocytes % 1.6 % (0-4); Lymphocytes # 0.6 K/mcL (0.6-4.6); Lymphocytes % 4.3 %; Mean Corpuscular HGB Conc 33.3 g/dL (31.6-35.5); Mean Corpuscular Hemoglobin 30.8 pg (28.0-33.3); Mean Corpuscular Volume 92.5 fL (83.0-100.0); Mean Platelet Volume 9.9 fL (9.4-12.4); Monocytes # 0.7 K/mcL (0.0-1.3); Monocytes % 4.7 %; Neutrophils # 12.5 K/mcL (1.6-8.9); Platelet Count 151 K/mcL (140-400); Red Blood Count 4.15 M/mcL (4.19-5.50); Red Cell Distribution Width 13.6 % (11.5-14.5); Segmented Neutrophils % 88.8 %; White Blood Count 14.1 K/mcL (4.3-11.1)
[2018-11-22 07:06] LABS: Calcium 8.6 mg/dL (8.6-10.3); Magnesium 1.8 mg/dL (1.6-2.6); Phosphorous 2.2 mg/dL (2.7-4.5); Potassium 3.7 mEq/L (3.5-5.1)
[2018-11-22] MEDS ORDERED: Ringers Solution, Lactated 1,000 ML IVC SCH ×2 (07:30→11:15)
[2018-11-22] MEDS ORDERED: cefTRIAXone 2,000 MG in Water for inj. (sterile) 20 ML 20 ML IVP SCH (09:00)
[2018-11-22] MEDS: Acetaminophen 325 MG TABLET PO PRN ×2 (09:21→19:44)
--- NOTE | 2018-11-22 09:21 | Infectious Disease Progress No ---
ID Progress Note Date of Encounter: 11/22/18 Time of Encounter: 09:00 - Subjective Subjective: The patient is seen and examined at bedside. He has been feeling well overnight. He did have one episode of low-grade temperature however he says that his leg is starting to feel somewhat better. He does say that the redness has started to fall lower on his leg. He has no acute complaints. - Objective CBC & Chem 7: 11/22/18 06:24 11/22/18 06:24 - Exam Vitals: Temp Pulse Resp BP Pulse Ox 99.1 F 86 18 110/71 95 11/22/18 07:08 11/22/18 07:08 11/22/18 07:08 11/22/18 07:08 11/22/18 07:08 Exam: Gen: Vitals noted. No acute distress. Eyes: anicteric sclerae, moist conjunctivae; no lid-lag; Pupils equal and reactive to light Cardiac: RRR, no murmur, +S1/S2 Pulmonary: CTA bilaterally, no wheezes, rales or rhonchi, equal chest expansion Abdomen: soft, nontender, no guarding. No masses or hepatosplenomegaly MSK: ROM intact, no joint swelling noted Extremities: Left lower extremity demonstrates no edema, clubbing, cyanosis. Right lower extremity as below. Skin: Well-demarcated cellulitis noted on the right lower extremity. Begins just below the knee and in just above the severe erythema and hyperemia. Stayed within demarcated region. There is a healing ulcer noted on the lateral right lower extremity. There are no areas of opening or drainage. There is a blistered appearance between the fourth and fifth metatarsal of the right lower extremity. No decubitus ulcers noted. Neuro: moves all extremities, no focal deficits. Psych: Appropriate mood and behavior. A&Ox3 - Assessment and Plan (1) Sepsis Current Visit: Yes Status: Resolved Severe Sepsis due to Streptococcus bacteremia and cellulitis of the right lower extremity SIRS Criteria: WBC 24.1, HR 101, RR 20. Afebrile, however Tmax 100.2. Source: Cellulitis, Strep bacteremia. Presents with KIM Evidence of cellulitis on admission, severe erythema and hyperemia of the right lower extremity which is well demarcated On admission, WBC 16.8 ->24.1. Now down to 14.1. Worsened KIM overnight. Lactic acid 2.0 CT RLE 11/27/18 shows diffuse subcutaneous edema with dystrophic calcification in the anterior soft tissues, compatible with cellulitis Patient does not be germain criteria for infective endocarditis ESR 14 CRP 123 Cultures 11/22/18 NGTD x2 11/20/18 blood culture positive for GPC 1, PCR positive for strep 10/15/17 left foot wound culture MRSA positive, strep agalactiae positive, alcigenes faecalis postivie 09/03/17 left foot wound culture strep agalactiae positive, MSSA positive 10/12/16 right foot wound culture strep G positive Antibiotics Rocephin 2g IV q24h day 2 Received Vancomycin and Zosyn previously Recommendations -Continue Rocephin 2g IV q24h -Duration of treatment depends on clinical course -At this time, suspect Streptococcus as main infective agent. If the patient decompensates clinically or labs are worsened in the morning, consider broadening coverage with Zyvox. Clinically, he appears to be improving, and he feels as though he is improving. -Will continue to monitor Qualifiers: Sepsis type: Streptococcus, unspecified Qualified Code(s): A40.9 - Streptococcal sepsis, unspecified; A40 - Streptococcal sepsis SNOMED Code(s): 70641547 (2) Bacteremia Current Visit: Yes Status: Acute Streptococcus bacteremia Cultures from 11/20/18 are positive 1, specific strain or not clear at this point Repeat cultures 11/22/18, NGTD. Continue to monitor. Patient does not meet Germain criteria at this time for endocarditis, has no stigmata of endocarditis on exam Additionally, patient has had orthopedic surgery, however has no hardware Appears to be improving clinically, evidence for severe sepsis dissipating We will continue to treat the patient as above SNOMED Code(s): 8580827 (3) Cellulitis of right lower extremity Current Visit: Yes Status: Acute Cellulitis, likely secondary to strep species It is possible that the cellulitis is polymicrobial however uncertain at this time We will transition the patient to Rocephin as above Continue to monitor clinically and with labs Broaden coverage as needed SNOMED Code(s): 102380125 (4) Acute kidney injury superimposed on CKD Current Visit: Yes Status: Acute Acute kidney injury on CKD Stage 3 This is likely secondary to severe sepsis in the setting of gram-positive bacteremia Management per primary team SNOMED Code(s): 90377912 (5) Hypothyroidism Current Visit: No Status: Chronic Qualifiers: Hypothyroidism type: unspecified Qualified Code(s): E03.9 - Hypothyroidism, unspecified SNOMED Code(s): 57904755 Consult Discharge Plan - Plan Referrals: Jean Buitrago MD [Primary Care Provider] - - Attending Attestation I examined this patient and my medical decision-making was reviewed with the Resident Physician. I agree with the documented findings, disposition and treatment plan as described except to the extent set forth below. Assessment and plan: Sepsis secondary to bacteremia Bacteremia with streptococcal species. ID pending likely source cellulitis Cellulitis right lower extremity Acute on chronic kidney injury Hypothyroidism Morbidity obesity BMI 50 Recommendations Stop the vancomycin Start Rocephin 2 g IV every 24 hours If patient does worse clinically we might have to add either daptomycin on Zyvox but hopefully we do not need to Monitor labs and for drug toxicity
[2018-11-22] MEDS ORDERED: Aminoglycoside Consult 1 EACH MC ONE (09:50)
--- NOTE | 2018-11-22 11:04 | Internal Med Progress Note ---
Hospitalist Progress Note - Encounter Date of Encounter: 11/22/18 Time of Encounter: 11:00 - Subjective Interval History: I have seen and evaluated the patient at bedside. patient reports still having pain on the right lower extremity, reports the edema and the erythema is slightly decreased. report feeling like he cannot empty his bladder completely. - Exam Vitals: Temp Pulse Resp BP Pulse Ox 99.1 F 86 18 110/71 95 11/22/18 07:08 11/22/18 07:08 11/22/18 07:08 11/22/18 07:08 11/22/18 07:08 Exam: Vitals: Reviewed General: Morbidly obese, alert and oriented x4. still in mild distress due to right lower extr pain Cardiovascular: RRR, normal S1 & S2, no rubs, murmurs or gallops. Lungs: CTA b/l, no wheezes or crackles. Abdomen: Obese, soft, non-tender, no rigidity. NABS in all 4 quadrants Extremities: erythema and edema and tenderness to touch on the right lower extr. Neurological: No focal neurological abnormalities Rest of the physical exam is non contributory - Assessment and Plan (1) Cellulitis Current Visit: Yes Status: Acute Assessment and Plan: patient with significant erythema and edema of the right lower extr. CT/CT lower leg RT wo con IMPRESSION: 1. Diffuse subcutaneous edema with dystrophic calcification noted within the anterior soft tissues. Findings may reflect chronic changes of venous stasis/lymph edema, however, correlate clinically to exclude superimposed cellulitis. No organized drainable fluid collection identified within limits of this noncontrast CT. No subcutaneous gas is evident. 2. No acute osseous abnormality. No CT evidence for osteomyelitis. Plan keep extremity elevated at least 45 degree continue norco 5-325mg 1tab/PO Q4HR PRN for pain control on Ceftriaxone 2gm/IV daily per ID recommendations (2) Hypothyroidism Current Visit: No Status: Chronic Assessment and Plan: On levothyroxine 112 mcg/PO daily (3) Sepsis Current Visit: Yes Status: Resolved (4) Chronic kidney disease, stage III (moderate) Current Visit: Yes Status: Acute Assessment and Plan: will hold home dose of furosemide today. continue gentle IV hydration with LR @75ml/hr x1 litter. will reassess kidney function tomorrow morning (5) Hypophosphatemia Current Visit: Yes Status: Acute Assessment and Plan: electrolyte being replaced. (6) Bacteremia Current Visit: Yes Status: Acute Assessment and Plan: Blood culture: gram positive cocci. PCR identified strep species Repeated blood culture: no growth to date Plan On ceftriaxone 2gm/IV daily TTE: unremarkable ID consulted, recommendations appreciated. (7) Morbid obesity with body mass index of 45.0-49.9 in adult Current Visit: No Status: Acute (8) BPH (benign prostatic hyperplasia) Current Visit: Yes Status: Chronic Assessment and Plan: will resume patient home dose of tamsulosin 0.4mg/PO daily if there is not improvement of his symptoms will increase the dose. bladder US ordered. DVT Prophylaxis: on heparin subQ. - Summary of Assessment and Plan Summary of Assessment and Plan: patient to remain in the hospital due to cellulitis of the right lower extr, on broad spectrum IV antibiotics - Time Spent with Patient Total time spent is greater than 50% in coordination of care (as documented) at patient's floor/unit and/or counseling patient: Greater than 35 minutes (40) Plan of Care Discussed with: patient (and the nurse.) Internal Medicine: Result - Labs CBC & Chem 7: 11/22/18 06:24 11/22/18 06:24 Labs: Short CBC 11/22/18 Range/Units 06:24 WBC 14.1 H (4.3-11.1) K/mcL Hgb 12.8 L (12.9-16.9) g/dL Hct 38.4 (37.5-50.1) % Plt Count 151 (140-400) K/mcL Neutrophils # 12.5 H (1.6-8.9) K/mcL BMP 11/22/18 06:24 Sodium 135 L Potassium 3.7 Chloride 101 Carbon Dioxide 24 BUN 28 H Creatinine 1.45 H Glucose 84 Calcium 8.6 - ABG Interpretation ABG results: PT/INR, D-dimer PT 11.9 Seconds (9.4-12.1) 11/20/18 19:32 - Impressions Impressions Echocardiogram 11/21/18 08:38 Impressions: Technically sub-optimal due to body habitus. LVEF 60%. Mild left ventricular diastolic dysfunction. Atypical septal motion consistent with bundle branch block. Moderately dilated left atrium. No evidence of pulmonary hypertension. No obvious significant valvular dysfunction Left Ventricular Wall Motion: Rest Echo Findings All wall segments showed normal motion. Findings: Study Quality * Technically sub-optimal due to body habitus. ECG Findings * Sinus rhythm with BBB. Left Ventricle * LVEF 60%. * Normal LV chamber size. * Mild left ventricular diastolic dysfunction. * Atypical septal motion consistent with bundle branch block. Right Ventricle * The right ventricle was not well visualized Left Atrium * Moderately dilated left atrium. Right Atrium * Right atrium is not well visualized. Aortic Valve * Aortic valve not well visualized. * No aortic regurgitation. * No aortic stenosis. * Moderately sclerotic aortic valve leaflets. Mitral Valve * No mitral stenosis. * Trace mitral regurgitation. * Mitral valve not well visualized. Tricuspid Valve * Tricuspid valve not well visualized. * Trace tricuspid regurgitation. * No tricuspid stenosis. * No evidence of pulmonary hypertension. Pulmonic Valve * Pulmonic valve not well visualized. Aorta * Normally sized aortic root. Pericardium * The pericardium appears normal. * Appearance is consistent with a {type} mitral valve replacement. Function appears {function{. IVC * Normal IVC dimensions and inspiratory collapse. Pulmonary Artery * Pulmonary artery not well visualized. Lower Extremity CT 11/21/18 13:00 IMPRESSION: 1. Diffuse subcutaneous edema with dystrophic calcification noted within the anterior soft tissues. Findings may reflect chronic changes of venous stasis/lymph edema, however, correlate clinically to exclude superimposed cellulitis. No organized drainable fluid collection identified within limits of this noncontrast CT. No subcutaneous gas is evident. 2. No acute osseous abnormality. No CT evidence for osteomyelitis. D/ / Sreedhar Sepulveda MD / Sreedhar Sepulveda MD Interpreting Provider: Sreedhar Sepulveda MD Consult Discharge Plan - Plan Referrals: Jean Buitrago MD [Primary Care Provider] - (1) Cellulitis Qualifiers: Site of cellulitis: extremity Site of cellulitis of extremity: lower extremity Laterality: right Qualified Code(s): L03.115 - Cellulitis of right lower limb (2) Hypothyroidism Qualifiers: Hypothyroidism type: unspecified Qualified Code(s): E03.9 - Hypothyroidism, unspecified (3) Sepsis Qualifiers: Sepsis type: Streptococcus, unspecified Qualified Code(s): A40.9 - Streptococcal sepsis, unspecified; A40 - Streptococcal sepsis (8) BPH (benign prostatic hyperplasia) Qualifiers: Lower urinary tract symptom presence: symptoms present Lower urinary tract symptom detail: incomplete bladder emptying Qualified Code(s): N40.1 - Benign prostatic hyperplasia with lower urinary tract symptoms; R39.14 - Feeling of incomplete bladder emptying
[2018-11-22] MEDS: cefTRIAXone 2,000 MG in Water for inj. (sterile) 20 ML 20 ML IVP SCH (16:55)
[2018-11-23] MEDS: *HR* Heparin 5,000 UNIT/ML VIAL SQ SCH ×2 (05:29→17:45)
[2018-11-23] MEDS: Acetaminophen 325 MG TABLET PO PRN ×2 (05:29→17:47)
[2018-11-23] MEDS: Furosemide 40 MG TABLET PO SCH (08:08)
[2018-11-23 08:36] LABS: Basophils % 0.3 %; Eosinophils # 0.1 K/mcL (0.0-0.6); Eosinophils % 1.2 %; Hematocrit 37.8 % (37.5-50.1); Hemoglobin 12.8 g/dL (12.9-16.9); Immature Granulocytes % 0.9 % (0-4); Lymphocytes # 0.9 K/mcL (0.6-4.6); Lymphocytes % 10.1 %; Mean Corpuscular HGB Conc 33.9 g/dL (31.6-35.5); Mean Corpuscular Hemoglobin 30.9 pg (28.0-33.3); Mean Corpuscular Volume 91.3 fL (83.0-100.0); Monocytes # 0.6 K/mcL (0.0-1.3); Monocytes % 6.3 %; Neutrophils # 7.2 K/mcL (1.6-8.9); Platelet Count 158 K/mcL (140-400); Red Blood Count 4.14 M/mcL (4.19-5.50); Red Cell Distribution Width 13.4 % (11.5-14.5); Segmented Neutrophils % 81.2 %; White Blood Count 8.9 K/mcL (4.3-11.1)
[2018-11-23 08:52] LABS: BUN/Creatinine Ratio 16 (6-26); Blood Urea Nitrogen 18 mg/dL (8-23); Calcium 8.5 mg/dL (8.6-10.3); Carbon Dioxide 25 mEq/L (23-29); Chloride 102 mEq/L (98-107); Glucose 110 mg/dL (70-105); Osmolality,Calculated 281 (280-300); Phosphorous 2.1 mg/dL (2.7-4.5); Potassium 3.5 mEq/L (3.5-5.1); Sodium 134 mEq/L (136-145); eGFR For African Americans > 60 (> 60); eGFR For Non-African Americans > 60 (> 60)
--- NOTE | 2018-11-23 12:40 | Internal Med Progress Note ---
Hospitalist Progress Note - Encounter Date of Encounter: 11/23/18 Time of Encounter: 12:37 - Subjective Interval History: I've seen and evaluated the patient at bedside. he report the edema on the right lower extr is improving. he denies pain on the right lower extr. denies nausea, vomiting or loose stool. - Exam Vitals: Temp Pulse Resp BP Pulse Ox 98.2 F 69 18 113/72 97 11/23/18 10:24 11/23/18 10:24 11/23/18 10:24 11/23/18 10:24 11/23/18 10:24 Exam: Vitals: Reviewed General: Morbidly obese, alert and oriented x4. In no distress Cardiovascular: RRR, normal S1 & S2, no rubs, murmurs or gallops. Lungs: CTA b/l, no wheezes or crackles. Abdomen: Obese, soft, non-tender, no rigidity. NABS in all 4 quadrants Extremities: resolving erythema and edema. no tenderness to touch on the right lower extr. Neurological: No focal neurological abnormalities Rest of the physical exam is non contributory - Assessment and Plan (1) Cellulitis Current Visit: Yes Status: Acute Assessment and Plan: erythema and edema of the right lower extr resolving CT/CT lower leg RT wo con IMPRESSION: 1. Diffuse subcutaneous edema with dystrophic calcification noted within the anterior soft tissues. Findings may reflect chronic changes of venous stasis/lymph edema, however, correlate clinically to exclude superimposed cellulitis. No organized drainable fluid collection identified within limits of this noncontrast CT. No subcutaneous gas is evident. 2. No acute osseous abnormality. No CT evidence for osteomyelitis. Plan continue to keep extremity elevated at least 45 degree [place] 5-325mg 1tab/PO Q4HR PRN for pain control Ceftriaxone 2gm/IV daily per ID recommendations (2) Hypothyroidism Current Visit: No Status: Chronic Assessment and Plan: Continue levothyroxine 112 mcg/PO daily (3) Sepsis Current Visit: Yes Status: Resolved (4) Chronic kidney disease, stage III (moderate) Current Visit: Yes Status: Chronic Assessment and Plan: Kidney function is back to baseline. Avoid nephrotoxic medication. (5) Hypophosphatemia Current Visit: Yes Status: Acute Assessment and Plan: Electrolytes being replaced. Repeat phosphate maven tomorrow morning. (6) Bacteremia Current Visit: Yes Status: Acute Assessment and Plan: Blood culture: gram positive cocci. str. dysgalactiae Repeated blood culture: no growth to date TTE: unremarkable Plan continue ceftriaxone 2gm/IV daily (7) Morbid obesity with body mass index of 45.0-49.9 in adult Current Visit: No Status: Acute (8) BPH (benign prostatic hyperplasia) Current Visit: Yes Status: Chronic Assessment and Plan: continue tamsulosin 0.4mg/PO. patient reports improvement with almost resolution of his symptoms (9) HTN (hypertension) Current Visit: Yes Status: Chronic Assessment and Plan: Blood pressure is well controlled on furosemide. DVT Prophylaxis: On heparin subq - Summary of Assessment and Plan Summary of Assessment and Plan: patient to remain in the hospital due to cellulitis of the right lower extr - Time Spent with Patient Total time spent is greater than 50% in coordination of care (as documented) at patient's floor/unit and/or counseling patient: Greater than 35 minutes (40) Plan of Care Discussed with: patient (and the nurse) Internal Medicine: Result - Labs CBC & Chem 7: 11/23/18 08:22 11/23/18 08:22 Labs: Short CBC 11/23/18 Range/Units 08:22 WBC 8.9 (4.3-11.1) K/mcL Hgb 12.8 L (12.9-16.9) g/dL Hct 37.8 (37.5-50.1) % Plt Count 158 (140-400) K/mcL Neutrophils # 7.2 (1.6-8.9) K/mcL BMP 11/23/18 08:22 Sodium 134 L Potassium 3.5 Chloride 102 Carbon Dioxide 25 BUN 18 Creatinine 1.10 Glucose 110 H Calcium 8.5 L - ABG Interpretation ABG results: PT/INR, D-dimer PT 11.9 Seconds (9.4-12.1) 11/20/18 19:32 - Impressions Impressions Bladder Ultrasound 11/22/18 00:00 IMPRESSION: No evidence of significant postvoid residual volume. D/ / Fernie Goldberg MD / Fernie Goldberg MD Interpreting Provider: Fernie Goldberg MD Consult Discharge Plan - Plan Referrals: Jean Buitrago MD [Primary Care Provider] - _ (1) Cellulitis Qualifiers: Site of cellulitis: extremity Site of cellulitis of extremity: lower extremity Laterality: right Qualified Code(s): L03.115 - Cellulitis of right l ower limb (2) Hypothyroidism Qualifiers: Hypothyroidism type: unspecified Qualified Code(s): E03.9 - Hypothyroidism, unspecified (3) Sepsis Qualifiers: Sepsis type: Streptococcus, unspecified Qualified Code(s): A40.9 - Streptococcal sepsis, unspecified; A40 - Streptococcal sepsis (8) BPH (benign prostatic hyperplasia) Qualifiers: Lower urinary tract symptom presence: symptoms present Lower urinary tract symptom detail: incomplete bladder emptying Qualified Code(s): N40.1 - Benign prostatic hyperplasia with lower urinary tract symptoms; R39.14 - Feeling of incomplete bladder emptying (9) HTN (hypertension) Qualifiers: Hypertension type: unspecified Qualified Code(s): I10 - Essential (primary) hypertension
[2018-11-23] MEDS: *HR* HYDROcodone/Acet 5/325 mg TABLET PO PRN ×2 (13:27→20:02)
[2018-11-23] MEDS: cefTRIAXone 2,000 MG in Water for inj. (sterile) 20 ML 20 ML IVP SCH (14:01)
[2018-11-24] MEDS: *HR* HYDROcodone/Acet 5/325 mg TABLET PO PRN ×2 (00:09→12:35)
[2018-11-24] MEDS: Melatonin 3 MG TABLET PO PRN ×2 (00:09→19:54)
[2018-11-24] MEDS: *HR* Heparin 5,000 UNIT/ML VIAL SQ SCH ×2 (05:28→17:42)
[2018-11-24] MEDS: Furosemide 40 MG TABLET PO SCH (07:16)
[2018-11-24 08:13] LABS: Basophils % 0.6 %; Eosinophils # 0.2 K/mcL (0.0-0.6); Eosinophils % 3.5 %; Hematocrit 37.5 % (37.5-50.1); Hemoglobin 12.7 g/dL (12.9-16.9); Immature Granulocytes % 1.2 % (0-4); Lymphocytes # 1.1 K/mcL (0.6-4.6); Lymphocytes % 16.2 %; Mean Corpuscular HGB Conc 33.9 g/dL (31.6-35.5); Mean Corpuscular Hemoglobin 30.9 pg (28.0-33.3); Mean Corpuscular Volume 91.2 fL (83.0-100.0); Monocytes # 0.7 K/mcL (0.0-1.3); Monocytes % 10.8 %; Neutrophils # 4.4 K/mcL (1.6-8.9); Platelet Count 180 K/mcL (140-400); Red Blood Count 4.11 M/mcL (4.19-5.50); Red Cell Distribution Width 13.6 % (11.5-14.5); Segmented Neutrophils % 67.7 %; White Blood Count 6.5 K/mcL (4.3-11.1)
[2018-11-24 08:30] LABS: BUN/Creatinine Ratio 17 (6-26); Blood Urea Nitrogen 19 mg/dL (8-23); Calcium 8.6 mg/dL (8.6-10.3); Carbon Dioxide 28 mEq/L (23-29); Chloride 101 mEq/L (98-107); Glucose 107 mg/dL (70-105); Osmolality,Calculated 289 (280-300); Potassium 3.5 mEq/L (3.5-5.1); Sodium 138 mEq/L (136-145); eGFR For African Americans > 60 (> 60); eGFR For Non-African Americans > 60 (> 60)
[2018-11-24] MEDS: Sennosides/Docusate Sodium TABLET PO SCH ×2 (08:45→19:54)
[2018-11-24 09:15] LABS: Magnesium 2.1 mg/dL (1.6-2.6); Phosphorous 2.4 mg/dL (2.7-4.5)
--- NOTE | 2018-11-24 11:47 | Internal Med Progress Note ---
Hospitalist Progress Note - Encounter Date of Encounter: 11/24/18 Time of Encounter: 11:44 - Subjective Interval History: I have seen and evaluated the patient at bedside. patient reports still having pain and discomfort on the right lower extr. reports constipation. denies abdominal pain, chest pain or shortness of breath. - Exam Vitals: Temp Pulse Resp BP Pulse Ox 98.1 F 69 19 112/73 94 11/24/18 07:09 11/24/18 07:09 11/24/18 07:11/24/18 07:11/24/18 07:18 Exam: Vitals: Reviewed General: Morbidly obese, alert and oriented x4. In mild distress due to discomfort on the right lower extr Cardiovascular: RRR, normal S1 & S2, no rubs, murmurs or gallops. Lungs: CTA b/l, no wheezes or crackles. Abdomen: Obese, soft, non-tender, no rigidity. NABS in all 4 quadrants Extremities: warmth to touch. erythema and edema. no tenderness to touch on the right lower extr. Neurological: No focal neurological abnormalities Rest of the physical exam is non contributory - Assessment and Plan (1) Cellulitis Current Visit: Yes Status: Acute Assessment and Plan: right lower extr warmth to touch. Plan keep extremity elevated at least 45 degree [place] 5-325mg 1tab/PO Q4HR PRN for pain control On Ceftriaxone 2gm/IV daily per ID recommendations will discuss with ID the posibility of broadening antibiotics, erythema with minimal resolution but no progression, extr warmth to touch. (2) Hypothyroidism Current Visit: No Status: Chronic Assessment and Plan: Levothyroxine 112 mcg/PO daily (3) Chronic kidney disease, stage III (moderate) Current Visit: Yes Status: Chronic Assessment and Plan: Kidney function at baseline. Continue to avoid nephrotoxic medication. (4) Hypophosphatemia Current Visit: Yes Status: Acute Assessment and Plan: Electrolytes replaced. (5) Bacteremia Current Visit: Yes Status: Acute Assessment and Plan: Blood culture: gram positive cocci. str. dysgalactiae Repeated blood culture: no growth to date TTE: unremarkable Plan On ceftriaxone 2gm/IV daily (6) Morbid obesity with body mass index of 45.0-49.9 in adult Current Visit: No Status: Acute (7) BPH (benign prostatic hyperplasia) Current Visit: Yes Status: Chronic Assessment and Plan: Continue tamsulosin 0.4 mg by mouth daily. (8) HTN (hypertension) Current Visit: Yes Status: Chronic Assessment and Plan: Blood pressures well controlled on furosemide 40 mg by mouth daily. (9) Sepsis Current Visit: Yes Status: Resolved DVT Prophylaxis: Patient is on heparin subcutaneous. - Summary of Assessment and Plan Summary of Assessment and Plan: Patient to remain in the hospital due to cellulitis of the right lower extremity on broad-spectrum IV antibiotics. - Time Spent with Patient Total time spent is greater than 50% in coordination of care (as documented) at patient's floor/unit and/or counseling patient: Greater than 35 minutes (40) Plan of Care Discussed with: patient (and the nurse) Internal Medicine: Result - Labs CBC & Chem 7: 11/24/18 07:46 11/24/18 07:46 Labs: Short CBC 11/24/18 Range/Units 07:46 WBC 6.5 (4.3-11.1) K/mcL Hgb 12.7 L (12.9-16.9) g/dL Hct 37.5 (37.5-50.1) % Plt Count 180 (140-400) K/mcL Neutrophils # 4.4 (1.6-8.9) K/mcL BMP 11/24/18 07:46 Sodium 138 Potassium 3.5 Chloride 101 Carbon Dioxide 28 BUN 19 Creatinine 1.10 Glucose 107 H Calcium 8.6 - ABG Interpretation ABG results: PT/INR, D-dimer PT 11.9 Seconds (9.4-12.1) 11/20/18 19:32 Consult Discharge Plan - Plan Referrals: Jean Buitrago MD [Primary Care Provider] - (1) Cellulitis Qualifiers: Site of cellulitis: extremity Site of cellulitis of extremity: lower extremity Laterality: right Qualified Code(s): L03.115 - Cellulitis of right lower limb (2) Hypothyroidism Qualifiers: Hypothyroidism type: unspecified Qualified Code(s): E03.9 - Hypothyroidism, unspecified (7) BPH (benign prostatic hyperplasia) Qualifiers: Lower urinary tract symptom presence: symptoms present Lower urinary tract symptom detail: incomplete bladder emptying Qualified Code(s): N40.1 - Benign prostatic hyperplasia with lower urinary tract symptoms; R39.14 - Feeling of incomplete bladder emptying (8) HTN (hypertension) Qualifiers: Hypertension type: unspecified Qualified Code(s): I10 - Essential (primary) hypertension (9) Sepsis Qualifiers: Sepsis type: Streptococcus, unspecified Qualified Code(s): A40.9 - Strept ococcal sepsis, unspecified; A40 - Streptococcal sepsis
[2018-11-24] MEDS: cefTRIAXone 2,000 MG in Water for inj. (sterile) 20 ML 20 ML IVP SCH (15:43)
[2018-11-24] MEDS: Acetaminophen 325 MG TABLET PO PRN (19:54)
[2018-11-25] MEDS: *HR* HYDROcodone/Acet 5/325 mg TABLET PO PRN ×3 (01:36→23:02)
[2018-11-25] MEDS: *HR* Heparin 5,000 UNIT/ML VIAL SQ SCH ×2 (06:12→16:57)
[2018-11-25] MEDS: Acetaminophen 325 MG TABLET PO PRN ×3 (06:14→20:34)
[2018-11-25] MEDS: Sennosides/Docusate Sodium TABLET PO SCH ×2 (07:06→20:35)
[2018-11-25] MEDS: Furosemide 40 MG TABLET PO SCH (07:06)
[2018-11-25 09:08] LABS: BUN/Creatinine Ratio 18 (6-26); Blood Urea Nitrogen 19 mg/dL (8-23); Calcium 8.7 mg/dL (8.6-10.3); Carbon Dioxide 29 mEq/L (23-29); Chloride 100 mEq/L (98-107); Glucose 103 mg/dL (70-105); Magnesium 2.1 mg/dL (1.6-2.6); Osmolality,Calculated 291 (280-300); Phosphorous 2.5 mg/dL (2.7-4.5); Potassium 3.7 mEq/L (3.5-5.1); Sodium 139 mEq/L (136-145); eGFR For African Americans > 60 (> 60); eGFR For Non-African Americans > 60 (> 60)
--- NOTE | 2018-11-25 11:05 | Infectious Disease Progress No ---
ID Progress Note Date of Encounter: 11/25/18 Time of Encounter: 09:00 - Subjective Subjective: The patient is seen and examined at bedside. Over the weekend he continued to have edema and erythema of the leg. In addition of this he started to have weeping of the leg with gold colored crusting. He says that this is relatively new and he has never had anything like this before. He says the pain is still there, however it is not severe. He did have no fevers over the weekend, however he had one episode of hypotension this morning. He has no acute complaints at this time. - Objective CBC & Chem 7: 11/24/18 07:46 11/25/18 08:07 - Exam Vitals: Temp Pulse Resp BP Pulse Ox 98.1 F 79 18 96/67 94 11/25/18 07:34 11/25/18 07:34 11/25/18 07:34 11/25/18 07:34 11/25/18 07:34 Exam: Gen: Vitals noted. No acute distress. Eyes: anicteric sclerae, moist conjunctivae; no lid-lag; Pupils equal and reactive to light Cardiac: RRR, no murmur, +S1/S2 Pulmonary: CTA bilaterally, no wheezes, rales or rhonchi, equal chest expansion Abdomen: soft, nontender, no guarding. No masses or hepatosplenomegaly MSK: ROM intact, no joint swelling noted Extremities: Left lower extremity demonstrates no edema, clubbing, cyanosis. Right lower extremity as below. Skin: Well-demarcated cellulitis noted on the right lower extremity. Begins just below the knee and in just above the severe erythema and hyperemia. Stayed within demarcated region. There is a healing ulcer noted on the lateral right lower extremity. There are multiple areas of yellow pus filled pockets that appear vaughn colored and crusted, similar to impetigo. There is a blistered appearance between the fourth and fifth metatarsal of the right lower extremity. No decubitus ulcers noted. Neuro: moves all extremities, no focal deficits. Psych: Appropriate mood and behavior. A&Ox3 - Assessment and Plan (1) Sepsis Current Visit: Yes Status: Resolved Severe Sepsis due to Streptococcus bacteremia and cellulitis of the right lower extremity SIRS Criteria: WBC 24.1, HR 101, RR 20. Afebrile, however Tmax 100.2. Source: Cellulitis, Strep bacteremia. Presents with KIM Evidence of cellulitis on admission, severe erythema and hyperemia of the right lower extremity which is well demarcated On admission, WBC 16.8 ->24.1. Now down to 14.1. Worsened KIM overnight. Lactic acid 2.0 CT RLE 11/27/18 shows diffuse subcutaneous edema with dystrophic calcification in the anterior soft tissues, compatible with cellulitis Patient does not meet germain criteria for infective endocarditis ESR 14 CRP 123 Cultures 11/25/18 Wound culture, right leg NGTD 11/25/18 anaerobic culture, right leg NGTD 11/22/18 NGTD x2 11/20/18 blood culture positive for GPC 1, Strep dysgalactiae equisimilis 10/15/17 left foot wound culture MRSA positive, strep agalactiae positive, alcigen es faecalis postivie 09/03/17 left foot wound culture strep agalactiae positive, MSSA positive 10/12/16 right foot wound culture strep G positive Antibiotics Rocephin 2g IV q24h day 5 Received Vancomycin and Zosyn previously Recommendations -Discontinue IV Rocephin at this time as the patient's cellulitis did not appear to be improving clinically, and in fact appears to be worsening - We will start IV penicillin G as well as vancomycin as the patient's kidney function has improved -Penicillin G IV 4million U q4h -Vancomycin IV Pharmacy to dose, Goal trough 10 -Duration of treatment depends on clinical course, Likely 14 days -At this time, suspect Streptococcus as main infective agent, however given gold crusted lesions MRSA is not out of the question -Will continue to monitor Qualifiers: Sepsis type: Streptococcus, unspecified Qualified Code(s): A40.9 - Streptococcal sepsis, unspecified; A40 - Streptococcal sepsis SNOMED Code(s): 97318918 (2) Bacteremia Current Visit: Yes Status: Acute Streptococcus bacteremia Cultures from 11/20/18 are positive 1, Strep dysgalactiae equisimilis Repeat cultures 11/22/18, NGTD. Continue to monitor. Patient does not meet Germain criteria at this time for endocarditis, has no stigmata of endocarditis on exam Additionally, patient has had orthopedic surgery, however has no hardware Appears to be improving clinically, evidence for severe sepsis dissipating We will continue to treat the patient as above SNOMED Code(s): 7247938 (3) Cellulitis of right lower extremity Current Visit: Yes Status: Acute Cellulitis, likely secondary to Strep dysgalactiae equisimilis It is possible that the cellulitis is polymicrobial however uncertain at this time Transitioned to treatment with penicillin G and vancomycin with dosing as above We will likely discharge on IV antibiotics SNOMED Code(s): 726160914 (4) Acute kidney injury superimposed on CKD Current Visit: Yes Status: Acute Acute kidney injury on CKD Stage 3 This is likely secondary to severe sepsis in the setting of gram-positive bacteremia Management per primary team SNOMED Code(s): 43254882 (5) Hypothyroidism Current Visit: No Status: Chronic Qualifiers: Hypothyroidism type: unspecified Qualified Code(s): E03.9 - Hypothyroidism, unspecified SNOMED Code(s): 81143879 Consult Discharge Plan - Plan Referrals: Jean Buitrago MD [Primary Care Provider] - - Attending Attestation I examined this patient and my medical decision-making was reviewed with the Resident Physician. I agree with the documented findings, disposition and treatment plan as described except to the extent set forth below. Assessment and plan: Sepsis secondary to bacteremia Bacteremia with streptococcal species. ID pending likely source cellulitis Cellulitis right lower extremity Acute on chronic kidney injury Hypothyroidism Morbidity obesity BMI 50 Recommendations Stop Rocephin Start IV penicillin G and add vancomycin for now. Code vancomycin trough around 10. Need to be super vigilant with the kidney function. Duration of treatment depends on the clinical picture. Await swab cultures from the cellulitis.
--- NOTE | 2018-11-25 12:32 | Internal Med Progress Note ---
Hospitalist Progress Note - Encounter Date of Encounter: 11/25/18 Time of Encounter: 12:30 - Subjective Interval History: I have seen and evaluated the patient at bedside. he reported today morning around 5 am his starter having some clear drainage from his right lower extr. reports worsening of the pain and the erythema is moving down towards his foot. denies chest pain, nausea or vomiting. - Exam Vitals: Temp Pulse Resp BP Pulse Ox 98.1 F 79 18 96/67 94 11/25/18 07:34 11/25/18 07:34 11/25/18 07:34 11/25/18 07:34 11/25/18 07:34 Exam: Vitals: Reviewed General: Morbidly obese, alert and oriented x4. In mild distress due to discomfort on the right lower extr Cardiovascular: RRR, normal S1 & S2, no rubs, murmurs or gallops. Lungs: CTA b/l, no wheezes or crackles. Abdomen: Obese, soft, non-tender, no rigidity. NABS in all 4 quadrants Extremities: still warmth to touch. erythema and edema. no tenderness to touch on the right lower extr. Neurological: No focal neurological abnormalities Rest of the physical exam is non contributory - Assessment and Plan (1) Cellulitis Current Visit: Yes Status: Acute Assessment and Plan: patient developed clearn drainage on the right lower extr. reports worsening of the pain. Plan keep extremity elevated at least 45 degree [place] 5-325mg 1tab/PO Q4HR PRN for pain control senna plus Ceftriaxone 2gm/IV daily per ID recommendations Antibiotics per ID recommendations wound culture: ordered (2) Hypothyroidism Current Visit: No Status: Chronic Assessment and Plan: continue levothyroxine 112 mcg/PO daily (3) Chronic kidney disease, stage III (moderate) Current Visit: Yes Status: Chronic Assessment and Plan: Kidney function at baseline. avoid nephrotoxic medication. on furosemide 40mg/PO daily (4) Hypophosphatemia Current Visit: Yes Status: Acute Assessment and Plan: electrolyte replaced. re-assess phosp level tomorrow morning (5) Bacteremia Current Visit: Yes Status: Acute Assessment and Plan: Blood culture: Str. dysgalactiae Repeated blood culture: no growth to date TTE: unremarkable Plan continue ceftriaxone 2gm/IV daily (6) Morbid obesity with body mass index of 45.0-49.9 in adult Current Visit: No Status: Acute (7) BPH (benign prostatic hyperplasia) Current Visit: Yes Status: Chronic Assessment and Plan: patient asymptomatic on tamsulosin 0.4 mg by mouth daily. (8) HTN (hypertension) Current Visit: Yes Status: Chronic Assessment and Plan: Blood pressures well controlled. continue furosemide 40 mg by mouth daily. (9) Sepsis Current Visit: Yes Status: Resolved DVT Prophylaxis: heparin subq - Summary of Assessment and Plan Summary of Assessment and Plan: patient to remain in the hospital due to worsening cellulitis. on broad spectrum IV antibiotics - Time Spent with Patient Total time spent is greater than 50% in coordination of care (as documented) at patient's floor/unit and/or counseling patient: Greater than 35 minutes (40) Plan of Care Discussed with: patient (and the nurse) Internal Medicine: Result - Labs CBC & Chem 7: 11/24/18 07:46 11/25/18 08:07 Labs: BMP 11/25/18 08:07 Sodium 139 Potassium 3.7 Chloride 100 Carbon Dioxide 29 BUN 19 Creatinine 1.03 Glucose 103 Calcium 8.7 - ABG Interpretation ABG results: PT/INR, D-dimer PT 11.9 Seconds (9.4-12.1) 11/20/18 19:32 Consult Discharge Plan - Plan Referrals: Jean Buitrago MD [Primary Care Provider] - (1) Cellulitis Qualifiers: Site of cellulitis: extremity Site of cellulitis of extremity: lower extremity Laterality: right Qualified Code(s): L03.115 - Cellulitis of right lower limb (2) Hypothyroidism Qualifiers: Hypothyroidism type: unspecified Qualified Code(s): E03.9 - Hypothyroidism, unspecified (7) BPH (benign prostatic hyperplasia) Qualifiers: Lower urinary tract symptom presence: symptoms present Lower urinary tract symptom detail: incomplete bladder emptying Qualified Code(s): N40.1 - Benign prostatic hyperplasia with lower urinary tract symptoms; R39.14 - Feeling of incomplete bladder emptying (8) HTN (hypertension) Qualifiers: Hypertension type: unspecified Qualified Code(s): I10 - Essential (primary) hypertension (9) Sepsis Qualifiers: Sepsis type: Streptococcus, unspecified Qualified Code(s): A40.9 - Streptococcal sepsis, unspecified; A40 - Streptococcal sepsis
[2018-11-25] MEDS: cefTRIAXone 2,000 MG in Water for inj. (sterile) 20 ML 20 ML IVP SCH (15:46)
[2018-11-25] MEDS ORDERED: Penicillin G Potassium 4,000,000 UNIT in 0.9 % Sodium Chloride 100 ML IVPB SCH (16:00)
[2018-11-25] MEDS: Penicillin G Potassium 4,000,000 UNIT in 0.9 % Sodium Chloride 100 ML IVPB SCH (22:25)
[2018-11-26] MEDS: Penicillin G Potassium 4,000,000 UNIT in 0.9 % Sodium Chloride 100 ML IVPB SCH ×6 (02:12→21:57)
[2018-11-26] MEDS: *HR* Heparin 5,000 UNIT/ML VIAL SQ SCH ×2 (05:46→18:10)
[2018-11-26] MEDS: Sennosides/Docusate Sodium TABLET PO SCH ×2 (07:40→21:56)
[2018-11-26] MEDS: Furosemide 40 MG TABLET PO SCH (07:41)
--- NOTE | 2018-11-26 09:08 | Infectious Disease Progress No ---
ID Progress Note Date of Encounter: 11/26/18 Time of Encounter: 10:00 - Subjective Subjective: The patient is seen and examined at bedside. Continues to have pain in his leg, and drainage around the blisters of his leg. There is yellow crusting around the blisters of his leg as well. It does remain wrapped but I did unwrap at the time of examination. He had no complaints of fever, chills, sweats overnight. - Objective CBC & Chem 7: 11/24/18 07:46 11/27/18 06:00 - Line Documentation Line Documentation: PICC Line - Exam Vitals: Temp Pulse Resp BP Pulse Ox 98.1 F 78 18 117/76 94 11/26/18 07:33 11/26/18 07:33 11/26/18 07:33 11/26/18 07:33 11/26/18 07:33 Exam: Gen: Vitals noted. No acute distress. Eyes: anicteric sclerae, moist conjunctivae; no lid-lag; Pupils equal and reactive to light Cardiac: RRR, no murmur, +S1/S2 Pulmonary: CTA bilaterally, no wheezes, rales or rhonchi, equal chest expansion Abdomen: soft, nontender, no guarding. No masses or hepatosplenomegaly MSK: ROM intact, no joint swelling noted Extremities: Left lower extremity demonstrates no edema, clubbing, cyanosis. Right lower extremity as below. Skin: Well-demarcated cellulitis noted on the right lower extremity. Begins just below the knee and in just above the severe erythema and hyperemia. Stayed within demarcated region. There is a healing ulcer noted on the lateral right lower extremity. There are multiple areas of yellow pus filled pockets that appear vaughn colored and crusted, similar to impetigo. There is a blistered appearance between the fourth and fifth metatarsal of the right lower extremity. No decubitus ulcers noted. Neuro: moves all extremities, no focal deficits. Psych: Appropriate mood and behavior. A&Ox3 - Assessment and Plan (1) Sepsis Current Visit: Yes Status: Resolved Severe Sepsis due to Streptococcus bacteremia and cellulitis of the right lower extremity SIRS Criteria: WBC 24.1, HR 101, RR 20. Afebrile, however Tmax 100.2. Source: Cellulitis, Strep bacteremia. Presents with KIM Evidence of cellulitis on admission, severe erythema and hyperemia of the right lower extremity which is well demarcated On admission, WBC 16.8 ->24.1. Now down to 14.1. Worsened KIM overnight. Lactic acid 2.0 CT RLE 11/27/18 shows diffuse subcutaneous edema with dystrophic calcification in the anterior soft tissues, compatible with cellulitis Patient does not meet germain criteria for infective endocarditis ESR 14 CRP 123 Cultures 11/25/18 Wound culture, right leg NGTD 11/25/18 anaerobic culture, right leg NGTD 11/22/18 NGTD x2 11/20/18 blood culture positive for GPC 1, Strep dysgalactiae equisimilis 10/15/17 left foot wound culture MRSA positive, strep agalactiae positive, alcigenes faecalis postivie 09/03/17 left foot wound culture strep agalactiae positive, MSSA positive 10/12/16 right foot wound culture strep G positive Antibiotics Penicillin G 4mil U IV q4h day 2 Vancomycin IV pharmacy to dose, day 2 Received 6 days Rocephin 2g IV Recommendations -Continue Penicillin G, Vancomycin Goal vancomycin trough 10, watch renal function closely -Duration of treatment depends on clinical course, Likely 14 days total for stop date of 12/06/18 -PICC line was placed today -At this time, suspect Streptococcus as main infective agent, however given gold crusted lesions MRSA is not out of the question -Consult to wound care for management -Will continue to monitor Qualifiers: Sepsis type: Streptococcus, unspecified Qualified Code(s): A40.9 - Streptococcal sepsis, unspecified; A40 - Streptococcal sepsis SNOMED Code(s): 80452891 (2) Bacteremia Current Visit: Yes Status: Acute Streptococcus bacteremia Cultures from 11/20/18 are positive 1, Strep dysgalactiae equisimilis Repeat cultures 11/22/18, NGTD. Continue to monitor. Patient does not meet Germain criteria at this time for endocarditis, has no stigmata of endocarditis on exam Additionally, patient has had orthopedic surgery, however has no hardware Appears to be improving clinically, evidence for severe sepsis dissipating We will continue to treat the patient as above SNOMED Code(s): 9054369 (3) Cellulitis of right lower extremity Current Visit: Yes Status: Acute Cellulitis, likely secondary to Strep dysgalactiae equisimilis It is possible that the cellulitis is polymicrobial however uncertain at this time Transitioned to treatment with penicillin G and vancomycin with dosing as above We will likely discharge on IV antibiotics SNOMED Code(s): 056232266 (4) Acute kidney injury superimposed on CKD Current Visit: Yes Status: Acute Acute kidney injury on CKD Stage 3 This is likely secondary to severe sepsis in the setting of gram-positive bacteremia Management per primary team SNOMED Code(s): 32593314 (5) Hypothyroidism Current Visit: No Status: Chronic Qualifiers: Hypothyroidism type: unspecified Qualified Code(s): E03.9 - Hypothyroidism, unspecified SNOMED Code(s): 19306467 Consult Discharge Plan - Plan Referrals: Jean Buitrago MD [Primary Care Provider] - - Attending Attestation I examined this patient and my medical decision-making was reviewed with the Resident Physician. I agree with the documented findings, disposition and treatment plan as described except to the extent set forth below. Assessment and plan: 1.Sepsis secondary to bacteremia 2.Bacteremia with streptococcal species. GCS 3.Cellulitis right lower extremity 4.Acute on chronic kidney injury 5.Hypothyroidism 6.Morbidity obesity BMI 50 Recommendations continue IV PCN and vancomycin. picc line placed given stool softner for constipation await swab cultures and wound care
[2018-11-26] MEDS: *HR* HYDROcodone/Acet 5/325 mg TABLET PO PRN ×3 (09:31→21:57)
[2018-11-26] MEDS ORDERED: Lidocaine -MPF 1% 5 ML AMPUL INFILT ONE (10:30)
--- NOTE | 2018-11-26 11:29 | Internal Med Progress Note ---
Hospitalist Progress Note - Encounter Date of Encounter: 11/26/18 Time of Encounter: 11:27 - Subjective Interval History: I have been and evaluated the patient at bedside. patient reports the pain in the right lower extremity is improving, reports it is oozing still. denies diarrhea, nausea or vomiting. denies chest pain - Exam Vitals: Temp Pulse Resp BP Pulse Ox 98.1 F 78 18 117/76 94 11/26/18 07:33 11/26/18 07:33 11/26/18 07:33 11/26/18 07:33 11/26/18 07:33 Exam: Vitals: Reviewed General: Morbidly obese, alert and oriented x4. No distress Cardiovascular: RRR, normal S1 & S2, no rubs, murmurs or gallops. Lungs: CTA b/l, no wheezes or crackles. Abdomen: Obese, soft, non-tender, no rigidity. NABS in all 4 quadrants Extremities: right lower ext, erythema improving, blisters with oozing, no warmth to touch. Neurological: No focal neurological abnormalities Rest of the physical exam is non contributory - Assessment and Plan (1) Cellulitis Current Visit: Yes Status: Acute Assessment and Plan: significant oozing of clear secretion and blisters in the right lower extr. Plan continue to keep extremity elevated at least 45 degree [place] 5-325mg 1tab/PO Q4HR PRN for pain control senna plus started on penicllin G and vancomycin wound care consulted wound culture: pending (2) Hypothyroidism Current Visit: No Status: Chronic Assessment and Plan: On levothyroxine 112 mcg/PO daily (3) Chronic kidney disease, stage III (moderate) Current Visit: Yes Status: Chronic Assessment and Plan: avoid nephrotoxic medications. (4) Bacteremia Current Visit: Yes Status: Acute Assessment and Plan: Blood culture: Str. dysgalactiae Repeated blood culture: no growth to date TTE: unremarkable Plan patient started on penicillin G per ID recommendations vancomycin per pharmacy protocol (5) Morbid obesity with body mass index of 45.0-49.9 in adult Current Visit: No Status: Acute (6) BPH (benign prostatic hyperplasia) Current Visit: Yes Status: Chronic Assessment and Plan: continue Tamsulosin 0.4 mg by mouth daily. (7) HTN (hypertension) Current Visit: Yes Status: Chronic Assessment and Plan: Blood pressures well controlled. On furosemide 40 mg by mouth daily. (8) Sepsis Current Visit: Yes Status: Resolved DVT Prophylaxis: Heparin subQ - Summary of Assessment and Plan Summary of Assessment and Plan: Patient to remain in the hospital due to cellulitis of the right lower extr, on broad spectrum IV antibiotics - Time Spent with Patient Total time spent is greater than 50% in coordination of care (as documented) at patient's floor/unit and/or counseling patient: Greater than 35 minutes (40) Plan of Care Discussed with: patient (and the nurse.) Internal Medicine: Result - Labs CBC & Chem 7: 11/24/18 07:46 11/25/18 08:07 - ABG Interpretation ABG results: PT/INR, D-dimer PT 11.9 Seconds (9.4-12.1) 11/20/18 19:32 Consult Discharge Plan - Plan Referrals: Jean Buitrago MD [Primary Care Provider] - (1) Cellulitis Qualifiers: Site of cellulitis: extremity Site of cellulitis of extremity: lower extremity Laterality: right Qualified Code(s): L03.115 - Cellulitis of right lower limb (2) Hypothyroidism Qualifiers: Hypothyroidism type: unspecified Qualified Code(s): E03.9 - Hypothyroidism, unspecified (6) BPH (benign prostatic hyperplasia) Qualifiers: Lower urinary tract symptom presence: symptoms present Lower urinary tract symptom detail: incomplete bladder emptying Qualified Code(s): N40.1 - Benign prostatic hyperplasia with lower urinary tract symptoms; R39.14 - Feeling of incomplete bladder emptying (7) HTN (hypertension) Qualifiers: Hypertension type: unspecified Qualified Code(s): I10 - Essential (primary) hypertension (8) Sepsis Qualifiers: Sepsis type: Streptococcus, unspecified Qualified Code(s): A40.9 - Streptococcal sepsis, unspecified; A40 - Streptococcal sepsis
[2018-11-26 12:46] LABS: BUN/Creatinine Ratio 18 (6-26); Blood Urea Nitrogen 19 mg/dL (8-23); Calcium 8.8 mg/dL (8.6-10.3); Carbon Dioxide 31 mEq/L (23-29); Chloride 100 mEq/L (98-107); Glucose 100 mg/dL (70-105); Osmolality,Calculated 288 (280-300); Potassium 3.7 mEq/L (3.5-5.1); Sodium 138 mEq/L (136-145); eGFR For African Americans > 60 (> 60); eGFR For Non-African Americans > 60 (> 60)
[2018-11-26] MEDS: Miconazole 2% ointment 141 APPL/141 GM TUBE TP SCH (14:44)
[2018-11-26] MEDS: Acetaminophen 325 MG TABLET PO PRN (18:11)
[2018-11-27] MEDS: Penicillin G Potassium 4,000,000 UNIT in 0.9 % Sodium Chloride 100 ML IVPB SCH ×6 (01:59→22:38)
[2018-11-27] MEDS: *HR* Heparin 5,000 UNIT/ML VIAL SQ SCH ×2 (06:02→18:29)
[2018-11-27 06:36] LABS: BUN/Creatinine Ratio 17 (6-26); Blood Urea Nitrogen 17 mg/dL (8-23); Calcium 8.4 mg/dL (8.6-10.3); Carbon Dioxide 31 mEq/L (23-29); Chloride 102 mEq/L (98-107); Glucose 88 mg/dL (70-105); Osmolality,Calculated 287 (280-300); Sodium 138 mEq/L (136-145); eGFR For African Americans > 60 (> 60); eGFR For Non-African Americans > 60 (> 60)
--- NOTE | 2018-11-27 08:29 | Internal Med Progress Note ---
Hospitalist Progress Note - Encounter Date of Encounter: 11/27/18 Time of Encounter: 08:29 - Subjective Interval History: No acute events. Patient states right leg pain is better. Denies fevers/chills, n/v. - Exam Vitals: Temp Pulse Resp BP Pulse Ox 98.1 F 84 16 130/73 96 11/27/18 07:47 11/27/18 07:47 11/27/18 07:47 11/27/18 07:47 11/27/18 07:47 Exam: Vitals: Reviewed General: Morbidly obese, alert and oriented. No distress Cardiovascular: RRR, normal S1 & S2, no m/r/g Lungs: CTA b/l, no wheezes or crackles. Abdomen: truncal obesity, soft, non-tender, non-distended Extremities: right lower ext, erythema purulent discharge is scant at shallow ulcer, tender Neurological: No focal neurological abnormalities - Assessment and Plan (1) Cellulitis Current Visit: Yes Status: Acute Assessment and Plan: Today is first day I am able to examine patient. Findings consistent with cellulitis. Staff at bedside aid in undressing wound states the erythema and purulent discharge are significantly improving. Plan continue to keep extremity elevated at least 45 degree [place] prn pain Continue PCN G and Vancomycin. Monitor renal function while on vancomycin: stable. wound care consulted wound culture: pending (2) Morbid obesity with body mass index of 45.0-49.9 in adult Current Visit: No Status: Acute (3) Sepsis Current Visit: Yes Status: Resolved Assessment and Plan: On admission patient with hypotension, febrile, leukocytosis in the setting of cellulitis. Resolved On IV Vanc and PCN G (4) Chronic kidney disease, stage III (moderate) Current Visit: Yes Status: Chronic Assessment and Plan: avoid nephrotoxic medications. Stable (5) Bacteremia Current Visit: Yes Status: Acute Assessment and Plan: Blood culture: Str. dysgalactiae Repeated blood culture: no growth to date TTE: unremarkable Plan patient started on penicillin G per ID recommendations vancomycin per pharmacy protocol (6) BPH (benign prostatic hyperplasia) Current Visit: Yes Status: Chronic Assessment and Plan: continue Tamsulosin (7) HTN (hypertension) Current Visit: Yes Status: Chronic Assessment and Plan: Blood pressures well controlled. (8) Hypothyroidism Current Visit: No Status: Chronic Assessment and Plan: On levothyroxine 112 mcg/PO daily - Time Spent with Patient Total time spent is greater than 50% in coordination of care (as documented) at patient's floor/unit and/or counseling patient: Internal Medicine: Result - Labs CBC & Chem 7: 11/24/18 07:46 11/27/18 06:00 Labs: BMP 11/26/18 11/27/18 12:14 06:00 Sodium 138 138 Potassium 3.7 4.0 Chloride 100 102 Carbon Dioxide 31 H 31 H BUN 19 17 Creatinine 1.04 0.99 Glucose 100 88 Calcium 8.8 8.4 L - ABG Interpretation ABG results: PT/INR, D-dimer PT 11.9 Seconds (9.4-12.1) 11/20/18 19:32 Consult Discharge Plan - Plan Referrals: Jean Butirago MD [Primary Care Provider] - (1) Cellulitis Qualifiers: Site of cellulitis: extremity Site of cellulitis of extremity: lower extr emity Laterality: right Qualified Code(s): L03.115 - Cellulitis of right lower limb (3) Sepsis Qualifiers: Sepsis type: Streptococcus, unspecified Qualified Code(s): A40.9 - Streptococcal sepsis, unspecified; A40 - Streptococcal sepsis (6) BPH (benign prostatic hyperplasia) Qualifiers: Lower urinary tract symptom presence: symptoms present Lower urinary tract symptom detail: incomplete bladder emptying Qualified Code(s): N40.1 - Benign prostatic hyperplasia with lower urinary tract symptoms; R39.14 - Feeling of incomplete bladder emptying (7) HTN (hypertension) Qualifiers: Hypertension type: unspecified Qualified Code(s): I10 - Essential (primary) hypertension (8) Hypothyroidism Qualifiers: Hypothyroidism type: unspecified Qualified Code(s): E03.9 - Hypothyroidism, unspecified
--- NOTE | 2018-11-27 08:52 | Infectious Disease Progress No ---
ID Progress Note Date of Encounter: 11/27/18 Time of Encounter: 09:00 - Subjective Subjective: The patient is seen and examined at bedside. Continues to have pain in his leg, and drainage around the blisters of his leg. There is yellow crusting around the blisters of his leg as well. It does remain wrapped but I did unwrap at the time of examination. He had no complaints of fever, chills, sweats overnight. - Objective CBC & Chem 7: 11/24/18 07:46 11/28/18 06:10 - Line Documentation Line Documentation: PICC Line - Exam Vitals: Temp Pulse Resp BP Pulse Ox 98.1 F 84 16 130/73 96 11/27/18 07:47 11/27/18 07:47 11/27/18 07:47 11/27/18 07:47 11/27/18 07:47 Exam: Gen: Vitals noted. No acute distress. Eyes: anicteric sclerae, moist conjunctivae; no lid-lag; Pupils equal and reactive to light Cardiac: RRR, no murmur, +S1/S2 Pulmonary: CTA bilaterally, no wheezes, rales or rhonchi, equal chest expansion Abdomen: soft, nontender, no guarding. No masses or hepatosplenomegaly MSK: ROM intact, no joint swelling noted Extremities: Left lower extremity demonstrates no edema, clubbing, cyanosis. Right lower extremity as below. Skin: Well-demarcated cellulitis noted on the right lower extremity. Begins just below the knee and in just above the severe erythema and hyperemia. Stayed within demarcated region. There is a healing ulcer noted on the lateral right lower extremity. Appears significantly better than it was yesterday. Neuro: moves all extremities, no focal deficits. Psych: Appropriate mood and behavior. A&Ox3 - Assessment and Plan (1) Sepsis Status: Resolved Severe Sepsis due to Streptococcus bacteremia and cellulitis of the right lower extremity SIRS Criteria: WBC 24.1, HR 101, RR 20. Afebrile, however Tmax 100.2. Source: Cellulitis, Strep bacteremia. Presents with KIM Evidence of cellulitis on admission, severe erythema and hyperemia of the right lower extremity which is well demarcated On admission, WBC 16.8 ->24.1. KIM initially however improved over course of sta y CT RLE 11/27/18 shows diffuse subcutaneous edema with dystrophic calcification in the anterior soft tissues, compatible with cellulitis Patient does not meet germain criteria for infective endocarditis ESR 14 CRP 123 Cultures 11/25/18 Wound culture, right leg NGTD 11/25/18 anaerobic culture, right leg NGTD 11/22/18 NGTD x2 11/20/18 blood culture positive for GPC 1, Strep dysgalactiae equisimilis 10/15/17 left foot wound culture MRSA positive, strep agalactiae positive, alcigenes faecalis postivie 09/03/17 left foot wound culture strep agalactiae positive, MSSA positive 10/12/16 right foot wound culture strep G positive Antibiotics Penicillin G 4mil U IV q4h day 2 Vancomycin IV pharmacy to dose, day 2 Received 6 days Rocephin 2g IV Recommendations -Continue Penicillin G, Vancomycin while inpatient Goal vancomycin trough 10, watch renal function closely -Recommend continuous infusion penicillin G on discharge with oral clindamycin 600mg TID -Duration of treatment 14 days total, stop date of 12/06/18. -PICC line was placed yesterday -At this time, suspect Streptococcus as main infective agent, however given gold crusted lesions MRSA is not out of the question Qualifiers: Sepsis type: Streptococcus, unspecified Qualified Code(s): A40.9 - Streptococcal sepsis, unspecified; A40 - Streptococcal sepsis SNOMED Code(s): 83703547 (2) Bacteremia Status: Acute Streptococcus bacteremia Cultures from 11/20/18 are positive 1, Strep dysgalactiae equisimilis Repeat cultures 11/22/18, NGTD. Continue to monitor. Patient does not meet Germain criteria at this time for endocarditis, has no stigmata of endocarditis on exam Additionally, patient has had orthopedic surgery, however has no hardware Appears to be improving clinically, evidence for severe sepsis dissipating SNOMED Code(s): 2710928 (3) Cellulitis of right lower extremity Status: Acute Cellulitis, likely secondary to Strep dysgalactiae equisimilis It is possible that the cellulitis is polymicrobial however uncertain at this time Transitioned to treatment with penicillin G and vancomycin with dosing as above We will likely discharge on IV antibiotics SNOMED Code(s): 328475924 (4) Acute kidney injury superimposed on CKD Status: Acute Acute kidney injury on CKD Stage 3 This is likely secondary to severe sepsis in the setting of gram-positive bacteremia Management per primary team SNOMED Code(s): 10788031 (5) Hypothyroidism Status: Chronic Qualifiers: Hypothyroidism type: unspecified Qualified Code(s): E03.9 - Hypothyroidism, unspecified SNOMED Code(s): 07145429 Consult Discharge Plan - Plan Referrals: Jean Buitrago MD [Primary Care Provider] - 12/05/18 9:15 am (Please follow up as schedule with Dr. Wynne) Prescriptions: Clindamycin HCl [Cleocin HCl] 600 mg PO TID 9 Days #54 cap HYDROcodone/Acet 5/325 mg [[place] 5-325 mg] 1 tab PO Q4HR PRN 3 Days #18 tablet PRN Reason: Pain Penicillin G Potassium 20,000,000 unit IJ CONT #9 vial Lactobacillus Combo No.10 [Probiotic] 1 each PO BID #60 capsule - Attending Attestation I examined this patient and my medical decision-making was reviewed with the Resident Physician. I agree with the documented findings, disposition and treatment plan as described except to the extent set forth below. Assessment and plan: 1.Sepsis secondary to bacteremia 2.Bacteremia with streptococcal species. GCS 3.Cellulitis right lower extremity 4.Acute on chronic kidney injury 5.Hypothyroidism 6.Morbidity obesity BMI 50 Recommendations continue IV PCN and vancomycin. picc line placed given stool softner for constipation await swab cultures and wound care
[2018-11-27] MEDS: Furosemide 40 MG TABLET PO SCH (09:43)
[2018-11-27] MEDS: *HR* HYDROcodone/Acet 5/325 mg TABLET PO PRN ×2 (09:43→21:19)
[2018-11-27] MEDS: Sennosides/Docusate Sodium TABLET PO SCH ×2 (09:43→21:15)
[2018-11-27] MEDS: Miconazole 2% ointment 141 APPL/141 GM TUBE TP SCH (10:24)
[2018-11-27] MEDS: Acetaminophen 325 MG TABLET PO PRN (17:39)
[2018-11-27] MEDS: Melatonin 3 MG TABLET PO PRN (21:15)
[2018-11-28] MEDS: Penicillin G Potassium 4,000,000 UNIT in 0.9 % Sodium Chloride 100 ML IVPB SCH ×4 (02:05→13:19)
[2018-11-28] MEDS: *HR* Heparin 5,000 UNIT/ML VIAL SQ SCH (06:12)
[2018-11-28 06:53] LABS: BUN/Creatinine Ratio 15 (6-26); Blood Urea Nitrogen 16 mg/dL (8-23); Calcium 8.6 mg/dL (8.6-10.3); Carbon Dioxide 31 mEq/L (23-29); Chloride 100 mEq/L (98-107); Glucose 92 mg/dL (70-105); Osmolality,Calculated 291 (280-300); Potassium 4.1 mEq/L (3.5-5.1); Sodium 140 mEq/L (136-145); eGFR For African Americans > 60 (> 60); eGFR For Non-African Americans > 60 (> 60)
--- NOTE | 2018-11-28 09:08 | Discharge Summary ---
- NOTES TO OUTPATIENT PROVIDER Notes to Outpatient Provider: Follow-up with renal funciton, has slight bump in creatinine that was improving. Orders not resulted at time of discharge: Pending orders 11/25/18 11:08 Culture,Anaerobic [RM] Routine 11/29/18 04:00 BMP [Basic Metabolic Panel] AM 0400 11/30/18 04:00 BMP [Basic Metabolic Panel] AM 0400 Date of Encounter: 11/28/18 Time of Encounter: 09:04 - Discharge Diagnosis (1) Cellulitis Priority: Primary Status: Acute Qualifiers: Site of cellulitis: extremity Site of cellulitis of extremity: lower extremity Laterality: right Qualified Code(s): L03.115 - Cellulitis of right lower limb (2) Morbid obesity with body mass index of 45.0-49.9 in adult Priority: Secondary Status: Acute (3) Sepsis Priority: Secondary Status: Resolved Qualifiers: Sepsis type: Streptococcus, unspecified Qualified Code(s): A40.9 - Streptococcal sepsis, unspecified; A40 - Streptococcal sepsis (4) Chronic kidney disease, stage III (moderate) Priority: Secondary Status: Chronic (5) Bacteremia Priority: Secondary Status: Acute (6) BPH (benign prostatic hyperplasia) Priority: Secondary Status: Chronic Qualifiers: Lower urinary tract symptom presence: symptoms present Lower urinary tract symptom detail: incomplete bladder emptying Qualified Code(s): N40.1 - Benign prostatic hyperplasia with lower urinary tract symptoms; R39.14 - Feeling of incomplete bladder emptying (7) HTN (hypertension) Priority: Secondary Status: Chronic Qualifiers: Hypertension type: unspecified Qualified Code(s): I10 - Essential (primary) hypertension (8) Hypothyroidism Priority: Secondary Status: Chronic Qualifiers: Hypothyroidism type: unspecified Qualified Code(s): E03.9 - Hypothyroidism, unspecified Hospital course: Mr. Kulkarni is a 68 year old male with history of hypothyroidism, neuropathy who presents with right leg swelling, developed pain and swelling with erythema in the right lower extremity. He states this feels similar to his previous episodes of cellulitis. He denies any trauma, injury, skin break to the area. He reports subjective fevers and chills. He was admitted for cellulitis. He states walking on it makes the pain worse. He states nothing makes the pain better. Patient met sepsis criteria on admission for leukocytosis and tach ycardia. Blood tested positive for strep dysgalactiae in 1 of 2 sets of blood cultures. ID was consulted, this was more likely a contaminate. He was on broad spectrum antibiotics including vancomycin for MRSA coverage based on his presentation. He was eventually de escalated to Penicillin G and Clindamycin on discharge. Patient was hemodynamically stable and sepsis was resolved. - Time Spent with Patient Total time spent providing and/or coordinating discharge services: - Discharge Medications Prescriptions: New Clindamycin HCl [Cleocin HCl] 600 mg PO TID 9 Days #54 cap Penicillin G Potassium 20,000,000 unit IJ CONT #9 vial HYDROcodone/Acet 5/325 mg [[place] 5-325 mg] 1 tab PO Q4HR PRN 3 Days #18 tablet PRN Reason: Pain Continued Levothyroxine [Synthroid] 112 mcg PO 0630 #0 Furosemide [Lasix] 40 mg PO DAILY PRN #0 PRN Reason: Edema Silver Sulfadiazine Cream [Silvadene] 1 appl TP DAILY PRN PRN Reason: LEG WOUNDS Tamsulosin [Flomax] 0.4 mg PO DAILY Home Medications: Furosemide [Lasix] 40 mg PO DAILY PRN #0 09/05/15 [History] Levothyroxine [Synthroid] 112 mcg PO 0630 #0 09/05/15 [History] Silver Sulfadiazine Cream [Silvadene] 1 appl TP DAILY PRN 07/05/18 [History] Tamsulosin [Flomax] 0.4 mg PO DAILY 11/21/18 [History] Clindamycin HCl [Cleocin HCl] 600 mg PO TID 9 Days #54 cap 11/27/18 [Rx] Penicillin G Potassium 20,000,000 unit IJ CONT #9 vial 11/27/18 [Rx] HYDROcodone/Acet 5/325 mg [[place] 5-325 mg] 1 tab PO Q4HR PRN 3 Days #18 tablet 11/28/18 [Rx] Allergies/Adverse Reactions: Allergy/AdvReac Type Severity Reaction Status Date / Time No Known Allergies Allergy Verified 11/20/18 16:10 Date of admission: 11/21/18 13:41 Primary care physician: Jean Buitrago MD Consults: 11/21/18 11:43 Consult to Infectious Diseases [CONS] Routine Consulting Provider: Infectious Disease Soraya Reason for Consult: gram possitive cocci Call Completed: Yes 11/26/18 10:22 Consult to Wound Care [CONS] Routine Reason for Consult: cellulitis of right lower leg Call Completed: Yes 11/26/18 10:30 Consult to Invasive Line Access Team [CONS] Routine Reason for Consult: Picc Line Insertion Line Type: PICC Discharging clinician: Fran Collier - Constitutional Vitals: Temp Pulse Resp BP Pulse Ox 98.1 F 65 16 105/70 94 11/28/18 06:33 11/28/18 06:33 11/28/18 06:33 11/28/18 06:33 11/28/18 06:33 General appearance: Present: A&O X 3, pleasant, no acute distress Exam: Vitals: Reviewed General: Morbidly obese, alert and oriented. No distress Cardiovascular: RRR, normal S1 & S2, no m/r/g Lungs: CTA b/l, no wheezes or crackles. Abdomen: truncal obesity, soft, non-tender, non-distended Extremities: right lower ext, erythema purulent discharge is scant at shallow ulcer, tender Neurological: No focal neurological abnormalities - Patient Status Disposition: Home Health Service Condition: Good Functional capacity at discharge: independent ambulation Overall status at discharge: patient is progressing back to baseline - Discharge Instructions Follow Up With: Jean Buitrago MD [Primary Care Provider] - - Diet and Activity Activity: increase activity as tolerated Diet: advance to your usual diet
[2018-11-28] MEDS: Furosemide 40 MG TABLET PO SCH (09:21)
[2018-11-28] MEDS: Sennosides/Docusate Sodium TABLET PO SCH (09:21)
[2018-11-28] MEDS: *HR* HYDROcodone/Acet 5/325 mg TABLET PO PRN (09:21)
[2018-11-28] MEDS: Miconazole 2% ointment 141 APPL/141 GM TUBE TP SCH (09:22)
--- NOTE | 2018-11-28 09:22 | Physician Discharge Referral ---
Home Health/Hosp Referral Info Transfer to: Home Health Provider in Charge Post Discharge: PCP - Diagnosis (1) Cellulitis Priority: Primary Status: Acute (2) Morbid obesity with body mass index of 45.0-49.9 in adult Priority: Secondary Status: Acute (3) Sepsis Priority: Secondary Status: Resolved (4) Chronic kidney disease, stage III (moderate) Priority: Secondary Status: Chronic (5) Bacteremia Priority: Secondary Status: Acute (6) BPH (benign prostatic hyperplasia) Priority: Secondary Status: Chronic (7) HTN (hypertension) Priority: Secondary Status: Chronic (8) Hypothyroidism Priority: Secondary Status: Chronic - Respiratory Orders Smoking Cessation: Smoking cessation has been advised. For more information, call the [place] Tobacco Quit Line at 2-220-QESI-NOW. - Services Needed Following services are medically necessary services: Nursing, Home Health Aide, Physical Therapy, Occupational Therapy, Home Infusion - Transfer Medications Prescriptions: Clindamycin HCl [Cleocin HCl] 600 mg PO TID 9 Days #54 cap HYDROcodone/Acet 5/325 mg [[place] 5-325 mg] 1 tab PO Q4HR PRN 3 Days #18 tablet PRN Reason: Pain Penicillin G Potassium 20,000,000 unit IJ CONT #9 vial Home Medications: Furosemide [Lasix] 40 mg PO DAILY PRN #0 09/05/15 [History] Levothyroxine [Synthroid] 112 mcg PO 0630 #0 09/05/15 [History] Silver Sulfadiazine Cream [Silvadene] 1 appl TP DAILY PRN 07/05/18 [History] Tamsulosin [Flomax] 0.4 mg PO DAILY 11/21/18 [History] Clindamycin HCl [Cleocin HCl] 600 mg PO TID 9 Days #54 cap 11/27/18 [Rx] Penicillin G Potassium 20,000,000 unit IJ CONT #9 vial 11/27/18 [Rx] HYDROcodone/Acet 5/325 mg [[place] 5-325 mg] 1 tab PO Q4HR PRN 3 Days #18 tablet 11/28/18 [Rx] Allergies/Adverse Reactions: Allergy/AdvReac Type Severity Reaction Status Date / Time No Known Allergies Allergy Verified 11/20/18 16:10 Certification: Further, I certify that my clinical findings support that this patient is homebound (i.e. absences from home require considerable and taxing effort and are for medical reasons or adventist services or infrequently or short duration when for other reasons) because: Homebound Reason: Patient requires assistance of a person or device to safely leave home Attestation: My signature below is to certify that this patient is under my care and that I, or nurse practitioner, or a physician's exceptional children teacher assistant working with me, has a [id number] encounter with this patient.
--- NOTE | 2018-11-28 10:05 | Infectious Disease Progress No ---
ID Progress Note Date of Encounter: 11/28/18 Time of Encounter: 09:55 - Subjective Subjective: Patient seen and examined. No acute events noted overnight. Patient states overall he feels okay. Denies fevers, chills, rigors. Denies chest pain, shortness of breath, cough. Denies nausea, vomiting, diarrhea, constipation. Denies abdominal pain or urinary complaints. Denies oral thrush or skin rashes. Reports pain and swelling in the right lower extremity is improved. She would like to stay in the hospital another night. - Objective CBC & Chem 7: 11/24/18 07:46 11/28/18 06:10 - Line Documentation Line Documentation: PICC Line - Exam Vitals: Temp Pulse Resp BP Pulse Ox 98.1 F 65 16 105/70 94 11/28/18 06:33 11/28/18 06:33 11/28/18 06:33 11/28/18 06:33 11/28/18 06:33 Exam: Head: Atraumatic, normal inspection, normocephalic. Eye: EOMI, PERRLA, no scleral icterus noted. ENT: Mucous membranes moist. No odontogenic infection noted. Neck: Normal inspection, no meningismus. Respiratory: Clear to auscultation. No rales, respiratory distress, rhonchi, or wheezes noted. Cardiovascular: Regular rate and rhythm, S1 and S2 audible. No murmurs, rubs, or gallops. GI: Soft, obese, normal bowel sounds. Extremities:No joint swelling, pedal edema, or tenderness noted. Right lower extremity compression dressing clean, dry, and intact. Neurological: Alert, oriented 3, no focal deficits. Psychiatric: normal affect, normal mood. Skin: Dry, intact, warm. Normal color. No rashes. - Assessment and Plan (1) Sepsis Status: Resolved Severe sepsis. The patient had three SIRS criteria. Likely secondary to bacteremia and RLE cellulitis. Improved. WBC normal. Tachycardia resolved. Afebrile overnight. Blood cultures drawn 11/20/18 were positive 1/2 for S. dysgalactiae. Repeat blood cultures drawn 11/22/18 are negative x 2 sets. Qualifiers: Sepsis type: Streptococcus, unspecified Qualified Code(s): A40.9 - Streptococcal sepsis, unspecified; A40 - Streptococcal sepsis SNOMED Code(s): 43454511 (2) Bacteremia Status: Acute Causative organism: Streptococcus dysgalactiae. Cultures from 11/20/18 are positive 1/2 sets for Strep dysgalactiae equisimilis Repeat cultures 11/22/18, NGTD. Patient does not meet Germain criteria at this time for endocarditis, has no stigmata of endocarditis on exam Additionally, patient has had orthopedic surgery, however has no hardware. Currently on PCN G. SNOMED Code(s): 7274790 (3) Cellulitis Status: Acute Location: RLE. Causative organism: Likely S. dysgalactiae. Cannot rule out MRSA. Likely multifactorial. CT of the RLE 11/27/18 shows diffuse subcutaneous edema with dystrophic calcification in the anterior soft tissues, compatible with cellulitis. ESR 14, CRP 123. Clinically improved per patient report. Currently on PCN G and Vanc. Qualifiers: Site of cellulitis: extremity Site of cellulitis of extremity: lower extremity Laterality: right Qualified Code(s): L03.115 - Cellulitis of right lower limb SNOMED Code(s): 150517570 (4) Acute kidney injury superimposed on CKD Status: Acute Acute kidney injury on CKD Stage 3. This is likely secondary to severe sepsis in the setting of gram-positive bacteremia. Resolved. Management per primary team. SNOMED Code(s): 62416735 (5) HTN (hypertension) Status: Chronic Qualifiers: Hypertension type: unspecified Qualified Code(s): I10 - Essential (primary) hypertension SNOMED Code(s): 66413747 (6) Hypothyroidism Status: Chronic Qualifiers: Hypothyroidism type: unspecified Qualified Code(s): E03.9 - Hypothyroidism, unspecified SNOMED Code(s): 90346619 - Recommendations Recommendations: Wound care and activity per the wound care team. Continue Vancomycin IV. Pharmacy to dose. Goal trough ~15. Continue PCN G 4 million units IV Q4H. Duration of treatment depends on the clinical picture. Will plan to continue the IV PCN G, but transition to continuous 24 hour infusion. Discontinue Vanc on discharge and transition to PO Clindamycin to complete a total of 14 days from the first set of negative blood cultures. Treat through 12/06/18. Monitor renal function and for drug toxicity and dose-adjust antibiotics. Consult Discharge Plan - Plan Referrals: Jean Buitrago MD [Primary Care Provider] - 12/05/18 9:15 am (Please follow up as schedule with Dr. Wynne) Prescriptions: Clindamycin HCl [Cleocin HCl] 600 mg PO TID 9 Days #54 cap HYDROcodone/Acet 5/325 mg [[place] 5-325 mg] 1 tab PO Q4HR PRN 3 Days #18 tablet PRN Reason: Pain Penicillin G Potassium 20,000,000 unit IJ CONT #9 vial Lactobacillus Combo No.10 [Probiotic] 1 each PO BID #60 capsule - Attending Attestation I examined this patient and my medical decision-making was reviewed with the Resident Physician. I agree with the documented findings, disposition and treatment plan as described except to the extent set forth below. Assessment and plan: 1.Sepsis secondary to bacteremia 2.Bacteremia with streptococcal species. GCS 3.Cellulitis right lower extremity 4.Acute on chronic kidney injury 5.Hypothyroidism 6.Morbidity obesity BMI 50 Recommendations continue IV PCN switch to oral clinda finish 14 days total
[2018-11-28 11:08] VITALS: BP 121/77
[2018-11-28] MEDS ORDERED: Lactobacillus 1 EACH CAP.SPRINK PO SCH (15:00)
== END 2018-11-28 16:02 | disposition home health service (06) | DRG 872 ==
LOC: 2ANU 16:01 → EMEROOARM 16:01 → SUATTDRO 22:24 → 2ANU 23:00 → SUATTDRO 11-21 13:41
PROVIDERS: ADMIT Internal Medicine; ATTEND Student in an Organized Health Care Education/Training Program

== ENCOUNTER 2020-08-04 11:06 | Inpatient (IN) ==
[2020-08-04] MEDS ORDERED: Isovue-370 500 ML BOTTLE IVP ONE (11:40)
[2020-08-04] MEDS ORDERED: Piperacillin/Tazobactam 3.375 GM in Water for inj. (sterile) 20 ML IVP ONE (11:43)
[2020-08-04] MEDS ORDERED: Morphine Sulfate Immed Rel 15 MG TABLET PO STA (11:43)
[2020-08-04 12:01] LABS: Basophils % 0.3 %; Eosinophils # 0.1 K/mcL (0.0-0.6); Eosinophils % 0.4 %; Hematocrit 40.5 % (37.5-50.1); Hemoglobin 13.7 g/dL (12.9-16.9); Immature Granulocytes % 0.8 % (0-4); Lymphocytes % 6.1 %; Mean Corpuscular HGB Conc 33.8 g/dL (31.6-35.5); Mean Corpuscular Hemoglobin 30.8 pg (28.0-33.3); Mean Platelet Volume 9.2 fL (9.4-12.4); Monocytes # 0.8 K/mcL (0.0-1.3); Monocytes % 5.3 %; Neutrophils # 13.7 K/mcL (1.6-8.9); Platelet Count 200 K/mcL (140-400); Red Blood Count 4.45 M/mcL (4.19-5.50); Red Cell Distribution Width 13.5 % (11.5-14.5); Segmented Neutrophils % 87.1 %; White Blood Count 15.7 K/mcL (4.3-11.1)
[2020-08-04 12:15] LABS: Calcium 8.6 mg/dL (8.6-10.3); Potassium 3.4 mEq/L (3.5-5.1)
[2020-08-04] MEDS ORDERED: Vancomycin 1,750 MG/517.5 ML IV.SOLN IVPB ONE (13:41)
[2020-08-04] MEDS ORDERED: Naloxone 0.4 MG/ML INJ IVP PRN (16:38)
[2020-08-04] MEDS ORDERED: Ondansetron 4 MG/2 ML VIAL IVP PRN (16:38)
[2020-08-04] MEDS ORDERED: 0.9 % Sodium Chloride 1,000 ML IVC SCH (16:45)
[2020-08-04] MEDS ORDERED: Vancomycin 1,500 MG/265 ML IV.SOLN IVPB SCH (17:00)
[2020-08-04] MEDS: Potassium Chloride Elixir 20 MEQ/15 ML UDC PO SCH ×2 (20:10→23:31)
[2020-08-04] MEDS: Acetaminophen 325 MG TABLET PO PRN (22:25)
[2020-08-05 05:27] LABS: Basophils % 0.3 %; Eosinophils # 0.3 K/mcL (0.0-0.6); Eosinophils % 2.9 %; Hematocrit 38.5 % (37.5-50.1); Hemoglobin 12.8 g/dL (12.9-16.9); Immature Granulocytes % 0.7 % (0-4); Lymphocytes % 8.7 %; Mean Corpuscular HGB Conc 33.2 g/dL (31.6-35.5); Mean Corpuscular Hemoglobin 30.6 pg (28.0-33.3); Mean Corpuscular Volume 92.1 fL (83.0-100.0); Mean Platelet Volume 9.7 fL (9.4-12.4); Monocytes # 0.7 K/mcL (0.0-1.3); Monocytes % 6.2 %; Neutrophils # 9.7 K/mcL (1.6-8.9); Platelet Count 158 K/mcL (140-400); Red Blood Count 4.18 M/mcL (4.19-5.50); Red Cell Distribution Width 13.5 % (11.5-14.5); Segmented Neutrophils % 81.2 %; White Blood Count 11.9 K/mcL (4.3-11.1)
[2020-08-05 05:37] LABS: Calcium 8.2 mg/dL (8.6-10.3); Magnesium 2.1 mg/dL (1.6-2.6); Phosphorous 2.1 mg/dL (2.7-4.5); Potassium 3.9 mEq/L (3.5-5.1)
[2020-08-05] MEDS ORDERED: Vancomycin 1,750 MG/517.5 ML IV.SOLN IVPB SCH (14:00)
[2020-08-05] MEDS ORDERED: Vancomycin 2,000 MG/520 ML IV.SOLN IVPB SCH (14:00)
[2020-08-05] MEDS: Piperacillin/Tazobactam 3.375 GM in 0.9 % Sodium Chloride Mini Bag 100 ML IVPB SCH (20:11)
[2020-08-05] MEDS: Acetaminophen 325 MG TABLET PO PRN (20:16)
[2020-08-06 03:16] LABS: Calcium 8.3 mg/dL (8.6-10.3); Magnesium 2.1 mg/dL (1.6-2.6); Phosphorous 2.6 mg/dL (2.7-4.5); Potassium 3.3 mEq/L (3.5-5.1)
[2020-08-06 03:24] LABS: Basophils % 0.5 %; Eosinophils # 0.3 K/mcL (0.0-0.6); Eosinophils % 3.8 %; Hematocrit 36.5 % (37.5-50.1); Hemoglobin 12.4 g/dL (12.9-16.9); Immature Granulocytes % 0.8 % (0-4); Lymphocytes # 0.9 K/mcL (0.6-4.6); Lymphocytes % 11.1 %; Mean Corpuscular Hemoglobin 31.4 pg (28.0-33.3); Mean Corpuscular Volume 92.4 fL (83.0-100.0); Mean Platelet Volume 9.8 fL (9.4-12.4); Monocytes # 0.9 K/mcL (0.0-1.3); Monocytes % 10.4 %; Neutrophils # 6.1 K/mcL (1.6-8.9); Platelet Count 175 K/mcL (140-400); Red Blood Count 3.95 M/mcL (4.19-5.50); Red Cell Distribution Width 13.3 % (11.5-14.5); Segmented Neutrophils % 73.4 %; White Blood Count 8.4 K/mcL (4.3-11.1)
[2020-08-06] MEDS: *HR* OxyCODONE Immed Rel 5 MG TABLET PO PRN ×2 (03:56→14:52)
[2020-08-06] MEDS: Piperacillin/Tazobactam 3.375 GM in 0.9 % Sodium Chloride Mini Bag 100 ML IVPB SCH ×3 (05:06→20:18)
[2020-08-06] MEDS: Potassium Chloride Elixir 20 MEQ/15 ML UDC PO SCH ×2 (08:40→11:29)
[2020-08-06] MEDS: Vancomycin 1,250 MG/262.5 ML IV.SOLN IVPB SCH (16:16)
[2020-08-07] MEDS: *HR* HYDROcodone/Acet 5/325 mg TABLET PO PRN ×3 (00:38→17:42)
[2020-08-07 01:06] LABS: Basophils # 0.1 K/mcL (0.0-0.2); Basophils % 1.1 %; Eosinophils # 0.6 K/mcL (0.0-0.6); Eosinophils % 7.7 %; Hematocrit 35.9 % (37.5-50.1); Hemoglobin 11.9 g/dL (12.9-16.9); Immature Granulocytes % 1.7 % (0-4); Lymphocytes # 1.2 K/mcL (0.6-4.6); Lymphocytes % 15.5 %; Mean Corpuscular HGB Conc 33.1 g/dL (31.6-35.5); Mean Corpuscular Hemoglobin 30.1 pg (28.0-33.3); Mean Corpuscular Volume 90.9 fL (83.0-100.0); Mean Platelet Volume 9.5 fL (9.4-12.4); Monocytes # 0.9 K/mcL (0.0-1.3); Monocytes % 11.5 %; Neutrophils # 4.7 K/mcL (1.6-8.9); Platelet Count 211 K/mcL (140-400); Red Blood Count 3.95 M/mcL (4.19-5.50); Red Cell Distribution Width 13.7 % (11.5-14.5); Segmented Neutrophils % 62.5 %; White Blood Count 7.6 K/mcL (4.3-11.1)
[2020-08-07 01:24] LABS: Calcium 8.4 mg/dL (8.6-10.3); Magnesium 2.4 mg/dL (1.6-2.6); Phosphorous 2.8 mg/dL (2.7-4.5)
[2020-08-07] MEDS: Vancomycin 1,250 MG/262.5 ML IV.SOLN IVPB SCH ×2 (03:15→17:32)
[2020-08-07] MEDS: Piperacillin/Tazobactam 3.375 GM in 0.9 % Sodium Chloride Mini Bag 100 ML IVPB SCH ×3 (04:26→20:51)
[2020-08-07] MEDS: *HR* OxyCODONE Immed Rel 5 MG TABLET PO PRN ×2 (12:51→20:50)
[2020-08-08 02:20] LABS: Basophils # 0.1 K/mcL (0.0-0.2); Basophils % 1.2 %; Eosinophils # 0.5 K/mcL (0.0-0.6); Eosinophils % 8.1 %; Hematocrit 34.7 % (37.5-50.1); Hemoglobin 11.3 g/dL (12.9-16.9); Immature Granulocytes % 3.4 % (0-4); Lymphocytes # 1.1 K/mcL (0.6-4.6); Lymphocytes % 16.2 %; Mean Corpuscular HGB Conc 32.6 g/dL (31.6-35.5); Mean Corpuscular Hemoglobin 30.7 pg (28.0-33.3); Mean Corpuscular Volume 94.3 fL (83.0-100.0); Mean Platelet Volume 9.6 fL (9.4-12.4); Monocytes # 0.9 K/mcL (0.0-1.3); Monocytes % 12.7 %; Neutrophils # 3.9 K/mcL (1.6-8.9); Platelet Count 223 K/mcL (140-400); Red Blood Count 3.68 M/mcL (4.19-5.50); Red Cell Distribution Width 13.7 % (11.5-14.5); Segmented Neutrophils % 58.4 %; White Blood Count 6.7 K/mcL (4.3-11.1)
[2020-08-08 02:40] LABS: BUN/Creatinine Ratio 17 (6-26); Blood Urea Nitrogen 22 mg/dL (8-23); Calcium 8.1 mg/dL (8.6-10.3); Carbon Dioxide 27 mEq/L (23-29); Chloride 102 mEq/L (98-107); Glucose 116 mg/dL (70-105); Magnesium 2.2 mg/dL (1.6-2.6); Osmolality,Calculated 282 (280-300); Phosphorous 3.1 mg/dL (2.7-4.5); Potassium 3.9 mEq/L (3.5-5.1); Sodium 134 mEq/L (136-145); eGFR For African Americans > 60 (> 60); eGFR For Non-African Americans 57 (> 60)
[2020-08-08] MEDS: Vancomycin 1,250 MG/262.5 ML IV.SOLN IVPB SCH ×2 (02:54→16:09)
[2020-08-08] MEDS: Piperacillin/Tazobactam 3.375 GM in 0.9 % Sodium Chloride Mini Bag 100 ML IVPB SCH ×3 (04:55→21:22)
[2020-08-08] MEDS: *HR* OxyCODONE Immed Rel 5 MG TABLET PO PRN ×2 (11:34→17:54)
[2020-08-08] MEDS: Furosemide 40 MG TABLET PO SCH ×2 (11:34→17:40)
[2020-08-08] MEDS: *HR* HYDROcodone/Acet 5/325 mg TABLET PO PRN (16:19)
[2020-08-08] MEDS: Lactobacillus 1 EACH CAP.SPRINK PO SCH (21:19)
[2020-08-09] MEDS: *HR* OxyCODONE Immed Rel 5 MG TABLET PO PRN ×2 (01:53→22:56)
[2020-08-09] MEDS: Vancomycin 1,250 MG/262.5 ML IV.SOLN IVPB SCH ×2 (03:18→14:24)
[2020-08-09] MEDS: *HR* HYDROcodone/Acet 5/325 mg TABLET PO PRN ×2 (04:00→09:57)
[2020-08-09 04:29] LABS: Hematocrit 33.8 % (37.5-50.1); Hemoglobin 11.5 g/dL (12.9-16.9); Mean Corpuscular Hemoglobin 30.9 pg (28.0-33.3); Mean Corpuscular Volume 90.9 fL (83.0-100.0); Mean Platelet Volume 9.4 fL (9.4-12.4); Platelet Count 253 K/mcL (140-400); Red Blood Count 3.72 M/mcL (4.19-5.50); Red Cell Distribution Width 13.8 % (11.5-14.5); White Blood Count 7.7 K/mcL (4.3-11.1)
[2020-08-09 04:46] LABS: Eosinophils # 0.5 K/mcL (0.0-0.6); Lymphocytes # 0.9 K/mcL (0.6-4.6); Monocytes # 0.3 K/mcL (0.0-1.3); Neutrophils # 5.5 K/mcL (1.6-8.9); Platelet Estimate Normal (Normal); Toxic Granulation Present (Not Present)
[2020-08-09 04:48] LABS: BUN/Creatinine Ratio 15 (6-26); Blood Urea Nitrogen 20 mg/dL (8-23); Calcium 8.4 mg/dL (8.6-10.3); Carbon Dioxide 25 mEq/L (23-29); Chloride 101 mEq/L (98-107); Glucose 96 mg/dL (70-105); Magnesium 2.3 mg/dL (1.6-2.6); Osmolality,Calculated 280 (280-300); Phosphorous 2.8 mg/dL (2.7-4.5); Potassium 3.9 mEq/L (3.5-5.1); Sodium 134 mEq/L (136-145); eGFR For African Americans > 60 (> 60); eGFR For Non-African Americans 53 (> 60)
[2020-08-09] MEDS: Piperacillin/Tazobactam 3.375 GM in 0.9 % Sodium Chloride Mini Bag 100 ML IVPB SCH ×3 (05:38→22:56)
[2020-08-09] MEDS: Lactobacillus 1 EACH CAP.SPRINK PO SCH ×2 (08:02→22:56)
[2020-08-09] MEDS: Furosemide 40 MG TABLET PO SCH (08:02)
[2020-08-09] MEDS: Furosemide 40 MG/4 ML VIAL IVP SCH (17:26)
[2020-08-10] MEDS: *HR* HYDROcodone/Acet 5/325 mg TABLET PO PRN ×2 (00:24→13:38)
[2020-08-10] MEDS: Vancomycin 1,250 MG/262.5 ML IV.SOLN IVPB SCH (02:52)
[2020-08-10] MEDS: Piperacillin/Tazobactam 3.375 GM in 0.9 % Sodium Chloride Mini Bag 100 ML IVPB SCH ×3 (04:09→20:34)
[2020-08-10 05:38] LABS: Eosinophils # 0.4 K/mcL (0.0-0.6); Hematocrit 33.9 % (37.5-50.1); Hemoglobin 11.1 g/dL (12.9-16.9); Mean Corpuscular HGB Conc 32.7 g/dL (31.6-35.5); Mean Corpuscular Hemoglobin 30.9 pg (28.0-33.3); Mean Corpuscular Volume 94.4 fL (83.0-100.0); Mean Platelet Volume 9.4 fL (9.4-12.4); Platelet Count 268 K/mcL (140-400); Red Blood Count 3.59 M/mcL (4.19-5.50); Red Cell Distribution Width 13.6 % (11.5-14.5); White Blood Count 6.6 K/mcL (4.3-11.1)
[2020-08-10 06:06] LABS: Lymphocytes # 2.4 K/mcL (0.6-4.6); Monocytes # 0.3 K/mcL (0.0-1.3); Neutrophils # 3.6 K/mcL (1.6-8.9); Reactive Lymphocytes Present (Not Present); Toxic Granulation Present (Not Present)
[2020-08-10 06:08] LABS: BUN/Creatinine Ratio 14 (6-26); Blood Urea Nitrogen 18 mg/dL (8-23); Calcium 7.9 mg/dL (8.6-10.3); Carbon Dioxide 27 mEq/L (23-29); Chloride 103 mEq/L (98-107); Glucose 104 mg/dL (70-105); Magnesium 2.3 mg/dL (1.6-2.6); Osmolality,Calculated 290 (280-300); Phosphorous 2.6 mg/dL (2.7-4.5); Potassium 3.3 mEq/L (3.5-5.1); Sodium 139 mEq/L (136-145); eGFR For African Americans > 60 (> 60); eGFR For Non-African Americans 54 (> 60)
[2020-08-10] MEDS: Furosemide 40 MG/4 ML VIAL IVP SCH ×2 (08:05→17:10)
[2020-08-10] MEDS: Lactobacillus 1 EACH CAP.SPRINK PO SCH ×2 (08:05→20:34)
[2020-08-10] MEDS ORDERED: metOLazone 5 MG TABLET PO ONE (12:15)
[2020-08-10] MEDS: *HR* OxyCODONE Immed Rel 5 MG TABLET PO PRN (20:34)
[2020-08-10] MEDS ORDERED: DiphenhydraMINE CREAM 28.4 GM TUBE TP PRN (23:22)
[2020-08-11] MEDS: *HR* HYDROcodone/Acet 5/325 mg TABLET PO PRN ×2 (00:20→12:57)
[2020-08-11] MEDS: *HR* OxyCODONE Immed Rel 5 MG TABLET PO PRN ×2 (04:41→21:46)
[2020-08-11] MEDS: Piperacillin/Tazobactam 3.375 GM in 0.9 % Sodium Chloride Mini Bag 100 ML IVPB SCH ×2 (04:42→12:51)
[2020-08-11 05:24] LABS: Basophils # 0.1 K/mcL (0.0-0.2); Hematocrit 35.1 % (37.5-50.1); Hemoglobin 11.6 g/dL (12.9-16.9); Mean Corpuscular Hemoglobin 30.5 pg (28.0-33.3); Mean Corpuscular Volume 92.4 fL (83.0-100.0); Platelet Count 291 K/mcL (140-400); Red Cell Distribution Width 13.5 % (11.5-14.5); White Blood Count 6.7 K/mcL (4.3-11.1)
[2020-08-11 05:41] LABS: BUN/Creatinine Ratio 13 (6-26); Blood Urea Nitrogen 18 mg/dL (8-23); Calcium 8.3 mg/dL (8.6-10.3); Carbon Dioxide 33 mEq/L (23-29); Chloride 97 mEq/L (98-107); Glucose 101 mg/dL (70-105); Magnesium 2.4 mg/dL (1.6-2.6); Osmolality,Calculated 286 (280-300); Phosphorous 2.6 mg/dL (2.7-4.5); Potassium 3.2 mEq/L (3.5-5.1); Sodium 137 mEq/L (136-145); eGFR For African Americans > 60 (> 60); eGFR For Non-African Americans 50 (> 60)
[2020-08-11 05:46] LABS: Lymphocytes # 1.7 K/mcL (0.6-4.6); Monocytes # 0.4 K/mcL (0.0-1.3); Neutrophils # 4.2 K/mcL (1.6-8.9); Reactive Lymphocytes Present (Not Present); Toxic Granulation Present (Not Present)
[2020-08-11 05:47] LABS: Anisocytosis 1+ (Not Present); Platelet Estimate Normal (Normal)
[2020-08-11] MEDS: Furosemide 40 MG/4 ML VIAL IVP SCH (08:02)
[2020-08-11] MEDS: Lactobacillus 1 EACH CAP.SPRINK PO SCH ×2 (08:02→21:46)
[2020-08-11] MEDS ORDERED: *HR* Enoxaparin 40 MG/0.4 ML SYRINGE SQ ONE (13:34)
[2020-08-11] MEDS: cephALEXin 500 MG CAPSULE PO SCH ×2 (16:25→21:46)
[2020-08-11] MEDS: Furosemide 40 MG TABLET PO SCH (16:28)
[2020-08-11] MEDS: Doxycycline 100 MG CAPSULE PO SCH (21:46)
[2020-08-12] MEDS: *HR* HYDROcodone/Acet 5/325 mg TABLET PO PRN (02:21)
[2020-08-12] MEDS ORDERED: *HR* Enoxaparin 40 MG/0.4 ML SYRINGE SQ SCH (06:00)
[2020-08-12] MEDS: cephALEXin 500 MG CAPSULE PO SCH ×2 (08:51→12:34)
[2020-08-12] MEDS: Lactobacillus 1 EACH CAP.SPRINK PO SCH (08:51)
[2020-08-12] MEDS: Furosemide 40 MG TABLET PO SCH (08:51)
[2020-08-12] MEDS: Doxycycline 100 MG CAPSULE PO SCH (08:51)
[2020-08-12 10:36] VITALS: BP 108/63
== END 2020-08-12 15:10 | disposition home health service (06) | DRG 872 ==
LOC: 3NENU 11:06 → EMEROOARM 11:06 → SUATTDRO 14:00 → 3NENU 15:20 → SUATTDRO 08-09 17:12
PROVIDERS: ADMIT Internal Medicine; ATTEND Internal Medicine

== ENCOUNTER 2020-11-16 18:30 | Inpatient (IN) ==
[2020-11-16] MEDS ORDERED: Vancomycin 2,000 MG 2,000 MG/520 ML IV.SOLN IVPB ONE (20:00)
[2020-11-16 20:32] LABS: Basophils % 0.5 %; Eosinophils # 0.3 K/mcL (0.0-0.6); Eosinophils % 3.3 %; Hematocrit 36.9 % (37.5-50.1); Immature Granulocytes % 0.5 % (0-4); Lymphocytes # 1.3 K/mcL (0.6-4.6); Lymphocytes % 15.1 %; Mean Corpuscular HGB Conc 35.2 g/dL (31.6-35.5); Mean Corpuscular Hemoglobin 32.2 pg (28.0-33.3); Mean Corpuscular Volume 91.3 fL (83.0-100.0); Mean Platelet Volume 9.2 fL (9.4-12.4); Monocytes % 11.7 %; Platelet Count 209 K/mcL (140-400); Red Blood Count 4.04 M/mcL (4.19-5.50); Red Cell Distribution Width 12.5 % (11.5-14.5); Segmented Neutrophils % 68.9 %; White Blood Count 8.7 K/mcL (4.3-11.1)
[2020-11-16 20:52] LABS: Alanine Aminotransferase 15 Units/L (7-52); Albumin 3.6 g/dL (3.5-5.7); Albumin/Globulin Ratio 1.2 (1.1-2.2); Alkaline Phosphatase 116 Units/L (34-104); Aspartate Amino Transferase 16 Units/L (13-39); BUN/Creatinine Ratio 13 (6-26); Bilirubin,Direct 0.4 mg/dL (0.0-0.2); Bilirubin,Total 1.4 mg/dL (0.3-1.0); Blood Urea Nitrogen 17 mg/dL (8-23); Calcium 8.6 mg/dL (8.6-10.3); Carbon Dioxide 28 mEq/L (23-29); Chloride 97 mEq/L (98-107); Globulin 2.9 g/dL (2.4-3.5); Glucose 109 mg/dL (70-105); Osmolality,Calculated 280 (280-300); Sodium 134 mEq/L (136-145); Total Protein 6.5 g/dL (6.4-8.9); eGFR For African Americans > 60 (> 60); eGFR For Non-African Americans 57 (> 60)
[2020-11-16] MEDS ORDERED: Potassium Chloride Elixir 20 MEQ/15 ML UDC PO ONE (22:01)
[2020-11-16] MEDS ORDERED: Isovue-370 500 ML BOTTLE IVP ONE (22:26)
[2020-11-17] MEDS ORDERED: Naloxone 0.4 MG/ML INJ IVP PRN (00:50)
[2020-11-17] MEDS ORDERED: Ondansetron 4 MG/2 ML VIAL IVP PRN (00:50)
[2020-11-17] MEDS ORDERED: Melatonin 3 MG TABLET PO PRN (00:50)
[2020-11-17] MEDS: Acetaminophen 325 MG TABLET PO PRN ×2 (01:13→19:43)
[2020-11-17 05:47] LABS: Basophils % 0.5 %; Eosinophils # 0.4 K/mcL (0.0-0.6); Eosinophils % 6.5 %; Hematocrit 36.7 % (37.5-50.1); Hemoglobin 12.8 g/dL (12.9-16.9); Immature Granulocytes % 0.5 % (0-4); Lymphocytes # 1.1 K/mcL (0.6-4.6); Lymphocytes % 18.5 %; Mean Corpuscular HGB Conc 34.9 g/dL (31.6-35.5); Mean Corpuscular Hemoglobin 32.1 pg (28.0-33.3); Mean Platelet Volume 9.2 fL (9.4-12.4); Monocytes # 0.6 K/mcL (0.0-1.3); Monocytes % 9.9 %; Platelet Count 199 K/mcL (140-400); Red Blood Count 3.99 M/mcL (4.19-5.50); Red Cell Distribution Width 12.4 % (11.5-14.5); Segmented Neutrophils % 64.1 %; White Blood Count 6.2 K/mcL (4.3-11.1)
[2020-11-17 05:55] LABS: INR 1.1; Prothrombin Time 12.7 Seconds (9.4-12.1)
[2020-11-17 05:58] LABS: Activated Partial Thrombo Time 26.4 Seconds (26.0-36.0)
[2020-11-17 06:10] LABS: Alanine Aminotransferase 15 Units/L (7-52); Albumin 3.5 g/dL (3.5-5.7); Albumin/Globulin Ratio 1.2 (1.1-2.2); Alkaline Phosphatase 126 Units/L (34-104); Aspartate Amino Transferase 14 Units/L (13-39); BUN/Creatinine Ratio 12 (6-26); Bilirubin,Total 1.6 mg/dL (0.3-1.0); Blood Urea Nitrogen 15 mg/dL (8-23); Calcium 8.6 mg/dL (8.6-10.3); Carbon Dioxide 27 mEq/L (23-29); Chloride 102 mEq/L (98-107); Globulin 2.9 g/dL (2.4-3.5); Glucose 104 mg/dL (70-105); Magnesium 2.1 mg/dL (1.6-2.6); Osmolality,Calculated 285 (280-300); Potassium 3.4 mEq/L (3.5-5.1); Sodium 137 mEq/L (136-145); Total Protein 6.4 g/dL (6.4-8.9); eGFR For African Americans > 60 (> 60); eGFR For Non-African Americans 60 (> 60)
[2020-11-17] MEDS ORDERED: Sennosides/Docusate Sodium TABLET PO PRN (06:29)
[2020-11-17] MEDS ORDERED: Furosemide 40 MG TABLET PO PRN (06:39)
[2020-11-17 08:52] LABS: Estimated Average Glucose 100 mg/dl; Hemoglobin A1C 5.1 %
[2020-11-17] MEDS ORDERED: Vancomycin 2,000 MG 2,000 MG/520 ML IV.SOLN IVPB SCH (09:00)
[2020-11-17] MEDS: Vancomycin 1,250 MG 1,250 MG/262.5 ML IV.SOLN IVPB SCH ×2 (10:27→19:40)
[2020-11-17 11:10] LABS: C-Reactive Protein 124 mg/L (Less than 10)
[2020-11-17] MEDS: *HR* Heparin 5,000 UNIT/ML VIAL SQ SCH (16:50)
[2020-11-17] MEDS: Cefepime HCl 2,000 MG in 0.9 % Sodium Chloride Mini Bag 100 ML IVPB SCH (16:50)
[2020-11-17] MEDS: metroNIDAZOLE 500 MG TABLET PO SCH (19:43)
[2020-11-18] MEDS: *HR* Heparin 5,000 UNIT/ML VIAL SQ SCH ×2 (05:03→18:29)
[2020-11-18] MEDS: Cefepime HCl 2,000 MG in 0.9 % Sodium Chloride Mini Bag 100 ML IVPB SCH ×2 (05:04→18:29)
[2020-11-18 08:38] LABS: Hematocrit 38.3 % (37.5-50.1); Hemoglobin 12.7 g/dL (12.9-16.9); Mean Corpuscular HGB Conc 33.2 g/dL (31.6-35.5); Mean Corpuscular Hemoglobin 31.6 pg (28.0-33.3); Mean Corpuscular Volume 95.3 fL (83.0-100.0); Mean Platelet Volume 9.4 fL (9.4-12.4); Platelet Count 219 K/mcL (140-400); Red Blood Count 4.02 M/mcL (4.19-5.50); Red Cell Distribution Width 12.6 % (11.5-14.5); White Blood Count 5.8 K/mcL (4.3-11.1)
[2020-11-18] MEDS ORDERED: Lidocaine -MPF 2% 2 ML VIAL ONE (09:18)
[2020-11-18] MEDS: Vancomycin 1,250 MG 1,250 MG/262.5 ML IV.SOLN IVPB SCH (09:26)
[2020-11-18] MEDS ORDERED: Vancomycin 1,000 MG VIAL ONE (09:32)
[2020-11-18] MEDS ORDERED: Ondansetron 4 MG/2 ML VIAL ONE (09:39)
[2020-11-18] MEDS ORDERED: Bupivacaine/Clonidine Syringe 20 ML, Syringe LUER-LOK 1 EACH TP ONE ×2 (09:50)
[2020-11-18] MEDS ORDERED: Ondansetron 4 MG/2 ML VIAL IVP PRN (11:16)
[2020-11-18] MEDS ORDERED: Naloxone 0.4 MG/ML INJ IVP PRN (11:16)
[2020-11-18] MEDS ORDERED: Furosemide 40 MG TABLET PO PRN (11:16)
[2020-11-18] MEDS: metroNIDAZOLE 500 MG TABLET PO SCH ×3 (11:33→20:00)
[2020-11-18] MEDS: Sennosides/Docusate Sodium TABLET PO PRN (18:33)
[2020-11-18] MEDS: Acetaminophen 325 MG TABLET PO PRN (20:01)
[2020-11-18] MEDS: Melatonin 3 MG TABLET PO PRN (20:01)
[2020-11-18] MEDS ORDERED: Vancomycin 1,250 MG 1,250 MG/262.5 ML IV.SOLN IVPB SCH (21:00)
[2020-11-19] MEDS: Acetaminophen 325 MG TABLET PO PRN ×2 (04:59→21:51)
[2020-11-19] MEDS: *HR* Heparin 5,000 UNIT/ML VIAL SQ SCH ×2 (05:00→18:14)
[2020-11-19] MEDS: Cefepime HCl 2,000 MG in 0.9 % Sodium Chloride Mini Bag 100 ML IVPB SCH ×2 (05:00→18:15)
[2020-11-19 05:34] LABS: Hematocrit 38.8 % (37.5-50.1); Hemoglobin 12.7 g/dL (12.9-16.9); Mean Corpuscular HGB Conc 32.7 g/dL (31.6-35.5); Mean Corpuscular Hemoglobin 31.4 pg (28.0-33.3); Mean Corpuscular Volume 95.8 fL (83.0-100.0); Mean Platelet Volume 9.8 fL (9.4-12.4); Platelet Count 229 K/mcL (140-400); Red Blood Count 4.05 M/mcL (4.19-5.50); Red Cell Distribution Width 12.9 % (11.5-14.5); White Blood Count 5.8 K/mcL (4.3-11.1)
[2020-11-19 05:46] LABS: Albumin 3.3 g/dL (3.5-5.7); Albumin/Globulin Ratio 1.2 (1.1-2.2); Bilirubin,Direct 0.2 mg/dL (0.0-0.2); Bilirubin,Indirect 0.3 mg/dL (0.0-1.0); Bilirubin,Total 0.5 mg/dL (0.3-1.0); Globulin 2.8 g/dL (2.4-3.5); Total Protein 6.1 g/dL (6.4-8.9)
[2020-11-19 05:48] LABS: Alanine Aminotransferase 14 Units/L (7-52); Albumin 3.3 g/dL (3.5-5.7); Albumin/Globulin Ratio 1.2 (1.1-2.2); Alkaline Phosphatase 120 Units/L (34-104); Aspartate Amino Transferase 13 Units/L (13-39); BUN/Creatinine Ratio 14 (6-26); Bilirubin,Total 0.5 mg/dL (0.3-1.0); Blood Urea Nitrogen 19 mg/dL (8-23); Calcium 8.7 mg/dL (8.6-10.3); Carbon Dioxide 24 mEq/L (23-29); Chloride 105 mEq/L (98-107); Globulin 2.8 g/dL (2.4-3.5); Glucose 101 mg/dL (70-105); Osmolality,Calculated 286 (280-300); Potassium 3.6 mEq/L (3.5-5.1); Sodium 137 mEq/L (136-145); Total Protein 6.1 g/dL (6.4-8.9); eGFR For African Americans > 60 (> 60); eGFR For Non-African Americans 51 (> 60)
[2020-11-19] MEDS: metroNIDAZOLE 500 MG TABLET PO SCH ×3 (08:23→21:52)
[2020-11-19] MEDS ORDERED: Fluconazole 150 MG TABLET PO ONE (12:00)
[2020-11-19] MEDS: Melatonin 3 MG TABLET PO PRN (21:52)
[2020-11-19] MEDS: Sennosides/Docusate Sodium TABLET PO PRN (21:58)
[2020-11-20] MEDS: Cefepime HCl 2,000 MG in 0.9 % Sodium Chloride Mini Bag 100 ML IVPB SCH ×2 (05:13→17:41)
[2020-11-20] MEDS: *HR* Heparin 5,000 UNIT/ML VIAL SQ SCH ×2 (05:13→17:40)
[2020-11-20] MEDS: metroNIDAZOLE 500 MG TABLET PO SCH ×3 (09:02→19:50)
[2020-11-20] MEDS: Melatonin 3 MG TABLET PO PRN (19:51)
[2020-11-20] MEDS: Acetaminophen 325 MG TABLET PO PRN (19:51)
[2020-11-20] MEDS: Sennosides/Docusate Sodium TABLET PO PRN (19:51)
[2020-11-21 03:52] LABS: BUN/Creatinine Ratio 14 (6-26); Blood Urea Nitrogen 17 mg/dL (8-23); eGFR For African Americans > 60 (> 60); eGFR For Non-African Americans 57 (> 60)
[2020-11-21] MEDS: *HR* Heparin 5,000 UNIT/ML VIAL SQ SCH ×2 (05:41→16:20)
[2020-11-21] MEDS: Cefepime HCl 2,000 MG in 0.9 % Sodium Chloride Mini Bag 100 ML IVPB SCH (05:41)
[2020-11-21] MEDS: metroNIDAZOLE 500 MG TABLET PO SCH ×3 (08:32→19:48)
[2020-11-21] MEDS: Piperacillin/Tazobactam 3.375 GM in 0.9 % Sodium Chloride Mini Bag 100 ML IVPB SCH ×2 (08:32→16:20)
[2020-11-21] MEDS: Melatonin 3 MG TABLET PO PRN (19:47)
[2020-11-21] MEDS: Acetaminophen 325 MG TABLET PO PRN (19:47)
[2020-11-21] MEDS: Sennosides/Docusate Sodium TABLET PO PRN (19:48)
[2020-11-22] MEDS: Piperacillin/Tazobactam 3.375 GM in 0.9 % Sodium Chloride Mini Bag 100 ML IVPB SCH ×2 (00:32→07:38)
[2020-11-22] MEDS: *HR* Heparin 5,000 UNIT/ML VIAL SQ SCH (05:16)
[2020-11-22 06:09] LABS: Basophils # 0.1 K/mcL (0.0-0.2); Basophils % 1.1 %; Eosinophils # 0.5 K/mcL (0.0-0.6); Eosinophils % 7.5 %; Hematocrit 35.4 % (37.5-50.1); Hemoglobin 11.6 g/dL (12.9-16.9); Lymphocytes # 1.3 K/mcL (0.6-4.6); Lymphocytes % 20.8 %; Mean Corpuscular HGB Conc 32.8 g/dL (31.6-35.5); Mean Corpuscular Hemoglobin 31.5 pg (28.0-33.3); Mean Corpuscular Volume 96.2 fL (83.0-100.0); Mean Platelet Volume 9.4 fL (9.4-12.4); Monocytes # 0.6 K/mcL (0.0-1.3); Monocytes % 9.3 %; Neutrophils # 3.7 K/mcL (1.6-8.9); Platelet Count 228 K/mcL (140-400); Red Blood Count 3.68 M/mcL (4.19-5.50); Red Cell Distribution Width 13.3 % (11.5-14.5); Segmented Neutrophils % 60.3 %; White Blood Count 6.1 K/mcL (4.3-11.1)
[2020-11-22 06:29] LABS: BUN/Creatinine Ratio 13 (6-26); Blood Urea Nitrogen 16 mg/dL (8-23); Calcium 8.5 mg/dL (8.6-10.3); Carbon Dioxide 23 mEq/L (23-29); Chloride 109 mEq/L (98-107); Glucose 105 mg/dL (70-105); Osmolality,Calculated 288 (280-300); Potassium 3.8 mEq/L (3.5-5.1); Sodium 138 mEq/L (136-145); eGFR For African Americans > 60 (> 60); eGFR For Non-African Americans 57 (> 60)
[2020-11-22] MEDS: metroNIDAZOLE 500 MG TABLET PO SCH (07:38)
[2020-11-22 11:59] VITALS: BP 138/67
== END 2020-11-22 14:17 | disposition home or self-care (01) | DRG 464 ==
LOC: EMEROOARM 18:30 → 3BNU 18:30 → SUATTDRO 22:31 → 3BNU 23:20 → SUATTDRO 11-18 10:31
PROVIDERS: ADMIT Internal Medicine; ATTEND Internal Medicine

== ENCOUNTER 2021-04-20 08:08 | Inpatient (IN) ==
[2021-04-20 09:13] LABS: Basophils # 0.1 K/mcL (0.0-0.2); Basophils % 0.8 %; Eosinophils # 0.7 K/mcL (0.0-0.6); Eosinophils % 8.6 %; Hematocrit 39.8 % (37.5-50.1); Hemoglobin 13.5 g/dL (12.9-16.9); Immature Granulocytes % 0.5 % (0-4); Lymphocytes # 1.3 K/mcL (0.6-4.6); Lymphocytes % 16.6 %; Mean Corpuscular HGB Conc 33.9 g/dL (31.6-35.5); Mean Corpuscular Hemoglobin 31.5 pg (28.0-33.3); Mean Corpuscular Volume 92.8 fL (83.0-100.0); Mean Platelet Volume 9.3 fL (9.4-12.4); Monocytes # 0.7 K/mcL (0.0-1.3); Monocytes % 9.1 %; Neutrophils # 5.1 K/mcL (1.6-8.9); Platelet Count 262 K/mcL (140-400); Red Blood Count 4.29 M/mcL (4.19-5.50); Red Cell Distribution Width 13.4 % (11.5-14.5); Segmented Neutrophils % 64.4 %; White Blood Count 7.8 K/mcL (4.3-11.1)
[2021-04-20 09:20] LABS: BUN/Creatinine Ratio 12 (6-26); Blood Urea Nitrogen 16 mg/dL (8-23); Calcium 8.6 mg/dL (8.6-10.3); Carbon Dioxide 29 mEq/L (23-29); Chloride 99 mEq/L (98-107); Glucose 114 mg/dL (70-105); Osmolality,Calculated 286 (280-300); Potassium 3.2 mEq/L (3.5-5.1); Sodium 137 mEq/L (136-145); eGFR For African Americans > 60 (> 60); eGFR For Non-African Americans 54 (> 60)
[2021-04-20] MEDS ORDERED: Naloxone 0.4 MG/ML INJ IVP PRN (12:02)
[2021-04-20] MEDS ORDERED: Melatonin 3 MG TABLET PO PRN (12:02)
[2021-04-20 14:49] LABS: C-Reactive Protein 89 mg/L (Less than 10)
[2021-04-20] MEDS: *HR* Heparin 5,000 UNIT/ML VIAL SQ SCH (17:47)
[2021-04-20] MEDS: CeFAZolin 2,000 MG/120 ML BAG IVPB SCH ×2 (18:17→23:11)
[2021-04-21 04:59] LABS: Basophils # 0.1 K/mcL (0.0-0.2); Basophils % 0.8 %; Eosinophils # 0.8 K/mcL (0.0-0.6); Eosinophils % 12.2 %; Hematocrit 37.7 % (37.5-50.1); Hemoglobin 12.5 g/dL (12.9-16.9); Immature Granulocytes % 0.8 % (0-4); Lymphocytes # 1.2 K/mcL (0.6-4.6); Lymphocytes % 19.4 %; Mean Corpuscular HGB Conc 33.2 g/dL (31.6-35.5); Mean Corpuscular Hemoglobin 31.6 pg (28.0-33.3); Mean Corpuscular Volume 95.4 fL (83.0-100.0); Mean Platelet Volume 9.2 fL (9.4-12.4); Monocytes # 0.7 K/mcL (0.0-1.3); Monocytes % 11.3 %; Neutrophils # 3.4 K/mcL (1.6-8.9); Platelet Count 243 K/mcL (140-400); Red Blood Count 3.95 M/mcL (4.19-5.50); Red Cell Distribution Width 13.4 % (11.5-14.5); Segmented Neutrophils % 55.5 %; White Blood Count 6.2 K/mcL (4.3-11.1)
[2021-04-21 05:20] LABS: BUN/Creatinine Ratio 14 (6-26); Blood Urea Nitrogen 19 mg/dL (8-23); Calcium 8.4 mg/dL (8.6-10.3); Carbon Dioxide 30 mEq/L (23-29); Chloride 102 mEq/L (98-107); Glucose 98 mg/dL (70-105); Magnesium 2.1 mg/dL (1.6-2.6); Osmolality,Calculated 290 (280-300); Potassium 3.1 mEq/L (3.5-5.1); Sodium 139 mEq/L (136-145); eGFR For African Americans > 60 (> 60); eGFR For Non-African Americans 52 (> 60)
[2021-04-21] MEDS: *HR* Heparin 5,000 UNIT/ML VIAL SQ SCH ×2 (06:15→17:15)
[2021-04-21] MEDS ORDERED: Furosemide 20 MG TABLET PO SCH (08:00)
[2021-04-21] MEDS ORDERED: Lactobacillus 1 EACH CAP.SPRINK PO SCH (09:00)
[2021-04-21] MEDS ORDERED: Cyanocobalamin (B-12) 1,000 MCG TABLET PO SCH (09:00)
[2021-04-21] MEDS ORDERED: Lidocaine -MPF 2% 5 ML VIAL ONE ×2 (10:00→10:08)
[2021-04-21] MEDS: CeFAZolin 2,000 MG/120 ML BAG IVPB SCH ×2 (10:02→17:15)
[2021-04-21] MEDS ORDERED: Lidocaine 1% 20 ML MDV ONE (11:24)
[2021-04-21] MEDS ORDERED: Bupivacaine/Clonidine Syringe 20 ML, Syringe LUER-LOK 1 EACH TP ONE (11:35)
[2021-04-21] MEDS ORDERED: *HR* FentaNYL (PF) 100 MCG/2 ML VIAL ONE (11:56)
[2021-04-21] MEDS ORDERED: *HR* Propofol 200 MG/20 ML VIAL IVP ONE ×2 (12:01→12:10)
[2021-04-21] MEDS ORDERED: Naloxone 0.4 MG/ML INJ IVP PRN (13:02)
[2021-04-22] MEDS ORDERED: Acetaminophen 325 MG TABLET PO ONE (00:05)
[2021-04-22] MEDS: CeFAZolin 2,000 MG/120 ML BAG IVPB SCH ×2 (00:13→08:49)
[2021-04-22 04:58] LABS: Hematocrit 36.2 % (37.5-50.1); Hemoglobin 12.5 g/dL (12.9-16.9); Mean Corpuscular HGB Conc 34.5 g/dL (31.6-35.5); Mean Corpuscular Hemoglobin 32.5 pg (28.0-33.3); Mean Platelet Volume 9.2 fL (9.4-12.4); Platelet Count 253 K/mcL (140-400); Red Blood Count 3.85 M/mcL (4.19-5.50); Red Cell Distribution Width 13.4 % (11.5-14.5); White Blood Count 7.3 K/mcL (4.3-11.1)
[2021-04-22 05:21] LABS: Calcium 8.7 mg/dL (8.6-10.3); Potassium 3.6 mEq/L (3.5-5.1)
[2021-04-22] MEDS: *HR* Heparin 5,000 UNIT/ML VIAL SQ SCH ×2 (06:02→17:13)
[2021-04-22] MEDS: 0.9 % Sodium Chloride 1,000 ML IVC SCH ×2 (08:48→23:37)
[2021-04-22] MEDS: Lactobacillus 1 EACH CAP.SPRINK PO SCH (08:48)
[2021-04-22] MEDS: Cyanocobalamin (B-12) 1,000 MCG TABLET PO SCH (08:49)
[2021-04-22] MEDS: Piperacillin/Tazobactam 3.375 GM in 0.9 % Sodium Chloride Mini Bag 100 ML IVPB SCH ×2 (17:13→23:25)
[2021-04-22] MEDS: Acetaminophen 325 MG TABLET PO PRN (23:22)
[2021-04-23] MEDS: *HR* Heparin 5,000 UNIT/ML VIAL SQ SCH ×2 (05:23→17:10)
[2021-04-23 05:38] LABS: Hematocrit 34.8 % (37.5-50.1); Hemoglobin 11.5 g/dL (12.9-16.9); Mean Corpuscular Hemoglobin 31.3 pg (28.0-33.3); Mean Corpuscular Volume 94.6 fL (83.0-100.0); Mean Platelet Volume 9.3 fL (9.4-12.4); Platelet Count 218 K/mcL (140-400); Red Blood Count 3.68 M/mcL (4.19-5.50); Red Cell Distribution Width 13.5 % (11.5-14.5); White Blood Count 5.6 K/mcL (4.3-11.1)
[2021-04-23 05:51] LABS: BUN/Creatinine Ratio 13 (6-26); Blood Urea Nitrogen 18 mg/dL (8-23); Calcium 8.2 mg/dL (8.6-10.3); Carbon Dioxide 28 mEq/L (23-29); Chloride 104 mEq/L (98-107); Glucose 101 mg/dL (70-105); Osmolality,Calculated 290 (280-300); Potassium 3.5 mEq/L (3.5-5.1); Sodium 139 mEq/L (136-145); eGFR For African Americans > 60 (> 60); eGFR For Non-African Americans 50 (> 60)
[2021-04-23] MEDS: Cyanocobalamin (B-12) 1,000 MCG TABLET PO SCH (08:18)
[2021-04-23] MEDS: Lactobacillus 1 EACH CAP.SPRINK PO SCH (08:18)
[2021-04-23] MEDS: Piperacillin/Tazobactam 3.375 GM in 0.9 % Sodium Chloride Mini Bag 100 ML IVPB SCH ×2 (08:20→17:09)
[2021-04-23] MEDS ORDERED: predniSONE 20 MG TABLET PO ONE (11:06)
[2021-04-23] MEDS: Loratadine 10 MG TABLET PO SCH (11:56)
[2021-04-23] MEDS: Melatonin 3 MG TABLET PO PRN (19:49)
[2021-04-23] MEDS: Acetaminophen 325 MG TABLET PO PRN (19:49)
[2021-04-24] MEDS: Piperacillin/Tazobactam 3.375 GM in 0.9 % Sodium Chloride Mini Bag 100 ML IVPB SCH ×4 (03:35→23:28)
[2021-04-24] MEDS: *HR* Heparin 5,000 UNIT/ML VIAL SQ SCH ×2 (05:10→17:15)
[2021-04-24 06:56] LABS: Hematocrit 32.7 % (37.5-50.1); Hemoglobin 10.8 g/dL (12.9-16.9); Mean Corpuscular Hemoglobin 31.5 pg (28.0-33.3); Mean Corpuscular Volume 95.3 fL (83.0-100.0); Mean Platelet Volume 9.3 fL (9.4-12.4); Platelet Count 215 K/mcL (140-400); Red Blood Count 3.43 M/mcL (4.19-5.50); Red Cell Distribution Width 13.4 % (11.5-14.5); White Blood Count 8.1 K/mcL (4.3-11.1)
[2021-04-24 07:15] LABS: BUN/Creatinine Ratio 14 (6-26); Blood Urea Nitrogen 17 mg/dL (8-23); Calcium 8.3 mg/dL (8.6-10.3); Carbon Dioxide 26 mEq/L (23-29); Chloride 108 mEq/L (98-107); Glucose 143 mg/dL (70-105); Osmolality,Calculated 294 (280-300); Potassium 3.7 mEq/L (3.5-5.1); Sodium 140 mEq/L (136-145); eGFR For African Americans > 60 (> 60); eGFR For Non-African Americans 58 (> 60)
[2021-04-24] MEDS: Loratadine 10 MG TABLET PO SCH (08:08)
[2021-04-24] MEDS: Cyanocobalamin (B-12) 1,000 MCG TABLET PO SCH (08:08)
[2021-04-24] MEDS: Lactobacillus 1 EACH CAP.SPRINK PO SCH (08:09)
[2021-04-24] MEDS: predniSONE 20 MG TABLET PO SCH (17:15)
[2021-04-24] MEDS: Acetaminophen 325 MG TABLET PO PRN (23:29)
[2021-04-24] MEDS: Melatonin 3 MG TABLET PO PRN (23:30)
[2021-04-25] MEDS: *HR* Heparin 5,000 UNIT/ML VIAL SQ SCH ×2 (05:46→17:00)
[2021-04-25] MEDS: Lactobacillus 1 EACH CAP.SPRINK PO SCH (07:55)
[2021-04-25] MEDS: predniSONE 20 MG TABLET PO SCH (07:56)
[2021-04-25] MEDS: Cyanocobalamin (B-12) 1,000 MCG TABLET PO SCH (07:56)
[2021-04-25] MEDS: Loratadine 10 MG TABLET PO SCH (07:56)
[2021-04-25] MEDS: Piperacillin/Tazobactam 3.375 GM in 0.9 % Sodium Chloride Mini Bag 100 ML IVPB SCH ×2 (08:03→17:00)
[2021-04-25] MEDS: Melatonin 3 MG TABLET PO PRN (20:54)
[2021-04-26] MEDS: Piperacillin/Tazobactam 3.375 GM in 0.9 % Sodium Chloride Mini Bag 100 ML IVPB SCH ×4 (00:43→23:45)
[2021-04-26] MEDS: *HR* Heparin 5,000 UNIT/ML VIAL SQ SCH ×2 (04:53→18:08)
[2021-04-26] MEDS: Cyanocobalamin (B-12) 1,000 MCG TABLET PO SCH (09:23)
[2021-04-26] MEDS: predniSONE 20 MG TABLET PO SCH (09:23)
[2021-04-26] MEDS: Lactobacillus 1 EACH CAP.SPRINK PO SCH (09:24)
[2021-04-26] MEDS: Loratadine 10 MG TABLET PO SCH (09:24)
[2021-04-26] MEDS: Melatonin 3 MG TABLET PO PRN (23:45)
[2021-04-27 04:29] VITALS: TEMP 97.6
[2021-04-27] MEDS: *HR* Heparin 5,000 UNIT/ML VIAL SQ SCH (05:33)
[2021-04-27 07:18] VITALS: O2SAT 96
[2021-04-27] MEDS ORDERED: Piperacillin/Tazobactam 4.5 GM in 0.9 % Sodium Chloride Mini Bag 100 ML IVPB ONE (08:00)
[2021-04-27] MEDS: Piperacillin/Tazobactam 3.375 GM in 0.9 % Sodium Chloride Mini Bag 100 ML IVPB SCH (08:42)
[2021-04-27] MEDS: predniSONE 20 MG TABLET PO SCH (08:42)
[2021-04-27] MEDS: Lactobacillus 1 EACH CAP.SPRINK PO SCH (08:42)
[2021-04-27] MEDS: Cyanocobalamin (B-12) 1,000 MCG TABLET PO SCH (08:42)
[2021-04-27] MEDS: Loratadine 10 MG TABLET PO SCH (08:42)
[2021-04-27 10:49] VITALS: BP 123/84; PULSE 72
== END 2021-04-27 16:36 | disposition home health service (06) | DRG 504 ==
LOC: EMEROOARM 08:08 → 4WAOSI 13:00 → SUATTDRO 13:00 → 4WAOSI 13:29
PROVIDERS: ADMIT Internal Medicine; ATTEND General Practice

== ENCOUNTER 2022-01-30 11:21 | Inpatient (IN) ==
[2022-01-30 14:00] LABS: Basophils % 0.6 %; Eosinophils # 0.3 K/mcL (0.0-0.6); Eosinophils % 4.4 %; Hematocrit 37.2 % (37.5-50.1); Hemoglobin 12.4 g/dL (12.9-16.9); Immature Granulocytes % 0.7 % (0-4); Lymphocytes # 1.5 K/mcL (0.6-4.6); Lymphocytes % 21.7 %; Mean Corpuscular HGB Conc 33.3 g/dL (31.6-35.5); Mean Corpuscular Hemoglobin 32.2 pg (28.0-33.3); Mean Corpuscular Volume 96.6 fL (83.0-100.0); Mean Platelet Volume 9.7 fL (9.4-12.4); Monocytes # 0.7 K/mcL (0.0-1.3); Monocytes % 9.6 %; Neutrophils # 4.5 K/mcL (1.6-8.9); Platelet Count 229 K/mcL (140-400); Red Blood Count 3.85 M/mcL (4.19-5.50); Red Cell Distribution Width 13.2 % (11.5-14.5); White Blood Count 7.1 K/mcL (4.3-11.1)
[2022-01-30 14:18] LABS: Calcium 8.8 mg/dL (8.6-10.3); Potassium 3.4 mEq/L (3.5-5.1)
[2022-01-30] MEDS ORDERED: Naloxone 0.4 MG/ML INJ IVP PRN (14:47)
[2022-01-30] MEDS ORDERED: Ondansetron 4 MG/2 ML VIAL IVP PRN (14:47)
[2022-01-30] MEDS ORDERED: *HR* OxyCODONE Immed Rel 5 MG TABLET PO PRN (14:47)
[2022-01-30] MEDS ORDERED: Vancomycin 2,000 MG/520 ML IV.SOLN IVPB ONE (15:00)
[2022-01-30] MEDS: Piperacillin/Tazobactam 3.375 GM in 0.9 % Sodium Chloride Mini Bag 100 ML IVPB SCH ×2 (17:15→23:16)
[2022-01-30] MEDS: *HR* Rivaroxaban 10 MG TABLET PO SCH (17:16)
[2022-01-30] MEDS ORDERED: polyethylene glycoL 3350 17 GM POWD.PACK PO PRN (22:43)
[2022-01-31 02:27] LABS: Calcium 8.1 mg/dL (8.6-10.3); Magnesium 2.1 mg/dL (1.6-2.6); Phosphorous 3.2 mg/dL (2.7-4.5); Potassium 3.3 mEq/L (3.5-5.1)
[2022-01-31] MEDS ORDERED: Vancomycin 2,000 MG/520 ML IV.SOLN IVPB SCH (03:00)
[2022-01-31] MEDS: Piperacillin/Tazobactam 3.375 GM in 0.9 % Sodium Chloride Mini Bag 100 ML IVPB SCH ×2 (08:40→15:11)
[2022-01-31] MEDS: Cyanocobalamin (B-12) 1,000 MCG TABLET PO SCH (08:40)
[2022-01-31] MEDS: *HR* HYDROcodone/Acet 5/325 mg TABLET PO PRN ×2 (08:49→21:20)
[2022-01-31] MEDS ORDERED: predniSONE 10 MG TABLET PO SCH (09:00)
[2022-01-31] MEDS ORDERED: Furosemide 40 MG/4 ML VIAL IVP ONE (14:23)
[2022-01-31] MEDS: *HR* Rivaroxaban 10 MG TABLET PO SCH (17:18)
[2022-02-01] MEDS: Piperacillin/Tazobactam 3.375 GM in 0.9 % Sodium Chloride Mini Bag 100 ML IVPB SCH ×4 (00:01→23:35)
[2022-02-01] MEDS: Triamcinolone Acet 0.1% CRM 15 GM TUBE TP SCH ×4 (04:34→19:49)
[2022-02-01] MEDS: Vancomycin 2,000 MG/520 ML IV.SOLN IVPB SCH ×2 (05:49→06:34)
[2022-02-01 05:50] LABS: Basophils % 0.4 %; Eosinophils # 0.8 K/mcL (0.0-0.6); Eosinophils % 10.2 %; Hematocrit 37.4 % (37.5-50.1); Hemoglobin 12.6 g/dL (12.9-16.9); Immature Granulocytes % 0.4 % (0-4); Lymphocytes # 1.1 K/mcL (0.6-4.6); Mean Corpuscular HGB Conc 33.7 g/dL (31.6-35.5); Mean Corpuscular Hemoglobin 32.4 pg (28.0-33.3); Mean Corpuscular Volume 96.1 fL (83.0-100.0); Monocytes # 0.6 K/mcL (0.0-1.3); Monocytes % 7.6 %; Platelet Count 224 K/mcL (140-400); Red Blood Count 3.89 M/mcL (4.19-5.50); Red Cell Distribution Width 13.3 % (11.5-14.5); Segmented Neutrophils % 67.4 %; White Blood Count 7.5 K/mcL (4.3-11.1)
[2022-02-01 06:12] LABS: Calcium 8.6 mg/dL (8.6-10.3); Potassium 3.8 mEq/L (3.5-5.1)
[2022-02-01] MEDS: Cyanocobalamin (B-12) 1,000 MCG TABLET PO SCH (07:56)
[2022-02-01] MEDS: Metoprolol XL (24 HR) Succ 25 MG TAB.ER.24H PO SCH (07:56)
[2022-02-01 10:29] LABS: mecA/C Methicillin-Resist Gene DETECTED (Not Detect)
[2022-02-01 10:30] LABS: A.calcoaceticus-baumannii cplx Not Detected (Not Detect); Bacteroides fragilis by PCR Not Detected (Not Detect); Candida albicans by PCR Not Detected (Not Detect); Candida auris by PCR Not Detected (Not Detect); Candida glabrata by PCR Not Detected (Not Detect); Candida krusei by PCR Not Detected (Not Detect); Candida parapsilosis by PCR Not Detected (Not Detect); Candida tropicalis by PCR Not Detected (Not Detect); Crypto. neoformans/gattii PCR Not Detected (Not Detect); Enterobacter cloacae Cmplx PCR Not Detected (Not Detect); Enterobacterales by PCR Not Detected (Not Detect); Enterococcus faecalis by PCR Not Detected (Not Detect); Enterococcus faecium by PCR Not Detected (Not Detect); Escherichia coli by PCR Not Detected (Not Detect); Klebs. pneumoniae group by PCR Not Detected (Not Detect); Klebsiella aerogenes by PCR Not Detected (Not Detect); Klebsiella oxytoca by PCR Not Detected (Not Detect); Proteus by PCR Not Detected (Not Detect); Pseudomonas aeruginosa by PCR Not Detected (Not Detect); Salmonella species by PCR Not Detected (Not Detect); Serratia marcescens by PCR Not Detected (Not Detect); Staph epidermidis by PCR DETECTED (Not Detect); Staph lugdunensis by PCR Not Detected (Not Detect); Staphylococcus aureus by PCR Not Detected (Not Detect); Stenotrophomonas maltophilia Not Detected (Not Detect); Streptococcus agalactiae(B)PCR Not Detected (Not Detect); Streptococcus by PCR Not Detected (Not Detect); Streptococcus pneumoniae PCR Not Detected (Not Detect); Streptococcus pyogenes (A) PCR Not Detected (Not Detect)
[2022-02-01] MEDS: Clobetasol Propionate 0.05% 15 GM Cream Tube TP SCH ×2 (11:42→19:49)
[2022-02-01] MEDS: *HR* Rivaroxaban 10 MG TABLET PO SCH (16:29)
[2022-02-01] MEDS: *HR* HYDROcodone/Acet 5/325 mg TABLET PO PRN (19:49)
[2022-02-02] MEDS: Vancomycin 2,000 MG/520 ML IV.SOLN IVPB SCH (05:33)
[2022-02-02] MEDS: Cyanocobalamin (B-12) 1,000 MCG TABLET PO SCH (08:07)
[2022-02-02] MEDS: Metoprolol XL (24 HR) Succ 25 MG TAB.ER.24H PO SCH (08:07)
[2022-02-02] MEDS: Triamcinolone Acet 0.1% CRM 15 GM TUBE TP SCH ×2 (08:08→15:27)
[2022-02-02] MEDS: Clobetasol Propionate 0.05% 15 GM Cream Tube TP SCH (08:08)
[2022-02-02] MEDS ORDERED: Furosemide 40 MG/4 ML VIAL IVP ONE (10:47)
[2022-02-02 12:25] LABS: Calcium 8.7 mg/dL (8.6-10.3); Potassium 4.1 mEq/L (3.5-5.1)
[2022-02-02] MEDS ORDERED: Cefepime HCl 2,000 MG in 0.9 % Sodium Chloride Mini Bag 100 ML IVPB SCH (16:00)
[2022-02-02] MEDS: *HR* Rivaroxaban 10 MG TABLET PO SCH (17:29)
[2022-02-02] MEDS: *HR* HYDROcodone/Acet 5/325 mg TABLET PO PRN (21:16)
[2022-02-03] MEDS: Clobetasol Propionate 0.05% 15 GM Cream Tube TP SCH ×2 (04:56→13:53)
[2022-02-03] MEDS: Triamcinolone Acet 0.1% CRM 15 GM TUBE TP SCH ×3 (04:56→15:48)
[2022-02-03 08:07] LABS: Bilirubin,Urine Negative (Negative); Blood,Urine Negative (Negative); Clarity,Urine Clear (Clear); Color,Urine Yellow (Yellow); Glucose,Urine (UA) Normal (Normal); Ketones,Urine Negative (Negative); Leukocyte Esterase,Urine Negative (Negative); Nitrite,Urine Negative (Negative); Protein,Urine Trace mg/dL (Neg-Trace); Specific Gravity,Urine 1.023 (1.010-1.025); Urobilinogen,Urine Normal (Normal)
[2022-02-03] MEDS: Metoprolol XL (24 HR) Succ 25 MG TAB.ER.24H PO SCH (08:38)
[2022-02-03] MEDS: Cyanocobalamin (B-12) 1,000 MCG TABLET PO SCH (08:38)
[2022-02-03 09:38] LABS: Calcium 8.5 mg/dL (8.6-10.3); Potassium 3.9 mEq/L (3.5-5.1)
[2022-02-03] MEDS: *HR* Rivaroxaban 10 MG TABLET PO SCH (17:48)
[2022-02-03 19:53] VITALS: BP 113/71; PULSE 71; TEMP 97.8; O2SAT 97
== END 2022-02-03 20:27 | disposition home health service (06) | DRG 607 ==
LOC: EMEROOARM 11:21 → 3ANU 11:21 → SUATTDRO 15:13 → 3ANU 16:48
PROVIDERS: ADMIT Internal Medicine; ATTEND Registered Nurse

== ENCOUNTER 2022-04-08 10:44 | Observation (INO) ==
[2022-04-08] MEDS ORDERED: Iopamidol - 370 500 ML MLS IVP ONE ×2 (11:48→11:51)
[2022-04-08 12:09] LABS: Basophils # 0.1 K/mcL (0.0-0.2); Basophils % 1.2 %; Eosinophils # 0.4 K/mcL (0.0-0.6); Eosinophils % 6.3 %; Hematocrit 41.9 % (37.5-50.1); Hemoglobin 13.6 g/dL (12.9-16.9); Immature Granulocytes % 0.6 % (0-4); Lymphocytes # 1.2 K/mcL (0.6-4.6); Lymphocytes % 19.1 %; Mean Corpuscular HGB Conc 32.5 g/dL (31.6-35.5); Mean Corpuscular Hemoglobin 31.1 pg (28.0-33.3); Mean Corpuscular Volume 95.7 fL (83.0-100.0); Mean Platelet Volume 9.1 fL (9.4-12.4); Monocytes # 0.6 K/mcL (0.0-1.3); Monocytes % 9.8 %; Neutrophils # 4.1 K/mcL (1.6-8.9); Platelet Count 243 K/mcL (140-400); Red Blood Count 4.38 M/mcL (4.19-5.50); Red Cell Distribution Width 13.3 % (11.5-14.5); White Blood Count 6.5 K/mcL (4.3-11.1)
[2022-04-08 12:20] LABS: Alanine Aminotransferase 11 Units/L (7-52); Albumin 3.7 g/dL (3.5-5.7); Albumin/Globulin Ratio 1.4 (1.1-2.2); Alkaline Phosphatase 110 Units/L (34-104); Aspartate Amino Transferase 13 Units/L (13-39); BUN/Creatinine Ratio 17 (6-26); Bilirubin,Total 0.7 mg/dL (0.3-1.0); Blood Urea Nitrogen 25 mg/dL (8-23); Calcium 8.7 mg/dL (8.6-10.3); Carbon Dioxide 29 mEq/L (23-29); Chloride 106 mEq/L (98-107); Globulin 2.7 g/dL (2.4-3.5); Glucose 94 mg/dL (70-105); INR 1.5; Osmolality,Calculated 294 (280-300); Potassium 4.1 mEq/L (3.5-5.1); Prothrombin Time 16.9 Seconds (9.4-12.1); Sodium 140 mEq/L (136-145); Total Protein 6.4 g/dL (6.4-8.9)
[2022-04-08 14:11] LABS: Troponin I < 0.03 ng/mL (< 0.04)
[2022-04-08] MEDS ORDERED: Acetaminophen 325 MG TABLET PO PRN (15:18)
[2022-04-08] MEDS ORDERED: Naloxone 0.4 MG/ML INJ IVP PRN (15:18)
[2022-04-08] MEDS ORDERED: Ondansetron 4 MG/2 ML VIAL IVP PRN (15:18)
[2022-04-09 07:20] LABS: Basophils # 0.1 K/mcL (0.0-0.2); Basophils % 0.9 %; Eosinophils # 0.5 K/mcL (0.0-0.6); Eosinophils % 7.7 %; Hematocrit 40.4 % (37.5-50.1); Hemoglobin 13.3 g/dL (12.9-16.9); Immature Granulocytes % 0.4 % (0-4); Lymphocytes # 1.6 K/mcL (0.6-4.6); Lymphocytes % 22.9 %; Mean Corpuscular HGB Conc 32.9 g/dL (31.6-35.5); Mean Corpuscular Hemoglobin 31.2 pg (28.0-33.3); Mean Corpuscular Volume 94.8 fL (83.0-100.0); Mean Platelet Volume 9.4 fL (9.4-12.4); Monocytes # 0.7 K/mcL (0.0-1.3); Monocytes % 9.4 %; Platelet Count 243 K/mcL (140-400); Red Blood Count 4.26 M/mcL (4.19-5.50); Red Cell Distribution Width 13.4 % (11.5-14.5); Segmented Neutrophils % 58.7 %; White Blood Count 6.9 K/mcL (4.3-11.1)
[2022-04-09 07:34] LABS: Calcium 8.6 mg/dL (8.6-10.3); Magnesium 2.2 mg/dL (1.6-2.6); Potassium 4.2 mEq/L (3.5-5.1)
[2022-04-09] MEDS: polyethylene glycoL 3350 17 GM POWD.PACK PO SCH (08:59)
[2022-04-09] MEDS: Metoprolol XL (24 HR) Succ 25 MG TAB.ER.24H PO SCH (08:59)
[2022-04-09] MEDS: Furosemide 40 MG TABLET PO SCH (16:04)
[2022-04-10 05:44] LABS: Basophils # 0.1 K/mcL (0.0-0.2); Basophils % 0.9 %; Eosinophils # 0.6 K/mcL (0.0-0.6); Eosinophils % 8.2 %; Hematocrit 40.3 % (37.5-50.1); Hemoglobin 13.2 g/dL (12.9-16.9); Immature Granulocytes % 0.7 % (0-4); Lymphocytes # 1.7 K/mcL (0.6-4.6); Lymphocytes % 24.1 %; Mean Corpuscular HGB Conc 32.8 g/dL (31.6-35.5); Mean Corpuscular Hemoglobin 31.1 pg (28.0-33.3); Mean Platelet Volume 9.5 fL (9.4-12.4); Monocytes # 0.7 K/mcL (0.0-1.3); Monocytes % 9.9 %; Platelet Count 227 K/mcL (140-400); Red Blood Count 4.24 M/mcL (4.19-5.50); Red Cell Distribution Width 13.3 % (11.5-14.5); Segmented Neutrophils % 56.2 %
[2022-04-10 06:15] LABS: Calcium 8.6 mg/dL (8.6-10.3); Potassium 4.2 mEq/L (3.5-5.1)
[2022-04-10] MEDS: Furosemide 40 MG TABLET PO SCH ×3 (08:29→16:08)
[2022-04-10] MEDS: Metoprolol XL (24 HR) Succ 25 MG TAB.ER.24H PO SCH (08:29)
[2022-04-10] MEDS: polyethylene glycoL 3350 17 GM POWD.PACK PO SCH (08:30)
[2022-04-10] MEDS ORDERED: Cyanocobalamin (B-12) 1,000 MCG TABLET PO SCH (09:00)
[2022-04-10] MEDS ORDERED: Lactobacillus 1 EACH CAP.SPRINK PO SCH (09:00)
[2022-04-10] MEDS ORDERED: SODIUM CHLORIDE/NAHCO3/KCL/PEG 4,000 ML SOLN.RECON PO ONE (17:00)
[2022-04-10 20:12] VITALS: BP 122/75; PULSE 68; TEMP 97.9; O2SAT 97
== END 2022-04-10 23:59 | disposition other institution (70) ==
LOC: 3BNU 10:44 → EMEROOARM 10:44 → SUATTDRO 15:25 → 3BNU 16:48
PROVIDERS: ADMIT Pharmacist; ATTEND Family Medicine